=== PATIENT | female | born 1945 | race Caucasian/White ===

== ENCOUNTER 2021-01-12 08:35 | Outpatient (REF) | payer MEDICARE, SELFPAY ==
[2021-01-12 10:03] LABS: MANUAL DIFF FLAG NO
[2021-01-12 10:16] LABS: Basophils Absolute Auto 0.1 X10*3/uL (0.0-0.2); Basophils Percent Auto 1.2 % (0-2); Eosinophils Absolute Auto 0.2 X10*3/uL (0.0-0.4); Eosinophils Percent Auto 3.1 % (0-4); Hematocrit 38.7 % (37-47); Hemoglobin 12.5 g/dl (12.0-16.0); Imm Gran Abs Auto 0.01 X10*3/uL (0.00-0.03); Imm Gran Pct Auto 0.2 % (0.0-0.4); Lymphocytes Absolute Auto 1.6 X10*3/uL (1.2-4.9); Lymphocytes Percent Auto 34.1 % (20-40); Mean Corpuscular HGB Conc 32.3 g/dl (31.0-35.0); Mean Corpuscular Hemoglobin 28.8 pg (27.0-33.0); Mean Corpuscular Volume 89.2 fL (80-98); Mean Platelet Volume 12.7 fL (9.4-12.3); Monocytes Absolute Auto 0.6 X10*3/uL (0.1-1.2); Monocytes Percent Auto 11.4 % (2-11); Neutrophils Absolute Auto 2.4 X10*3/uL (2.0-8.3); Platelet Count 208 X10*3/uL (160-400); Red Blood Count 4.34 X10*6/uL (4.20-5.50); Red Cell Distribution Width 14.6 % (11.0-16.0); White Blood Count 4.8 X10*3/uL (4.8-10.8)
[2021-01-12 10:24] LABS: Estimated Average Glucose 105 mg/dL; Hemoglobin A1c % 5.3 %
[2021-01-12 10:50] LABS: Alanine Aminotransferase 15 U/L (0-31); Albumin Level 4.4 g/dL (3.5-5.0); Alkaline Phosphatase 46 U/L (39-117); Anion Gap 12 (12-20); Aspartate Amino Transferase 18 U/L (5-31); Bilirubin Total 0.6 mg/dL (0.0-1.0); Carbon Dioxide 31 mmol/L (22-29); Chloride 106 mmol/L (96-108); Cholesterol 187 mg/dL; Estimated Glomerular Filt Rate > 60; Glucose Fasting 115 mg/dL (60-99); HDL Cholesterol 64 mg/dL; LDL Cholesterol Calculated 109 mg/dl; Potassium 4.9 mmol/L (3.3-5.1); Sodium 144 mmol/L (135-145); Total Protein 6.8 g/dL (6.5-8.0); Triglycerides 74 mg/dL
[2021-01-12 10:57] LABS: Blood Urea Nitrogen 21 mg/dL (9-16); Calcium 9.7 mg/dL (8.4-10.2)
[2021-01-12 11:01] LABS: Free T4 (Free Thyroxine) 1.15 ng/dL (0.71-1.85); Thyroid Stimulating Hormone 0.72 uIU/mL (0.32-4.0); Vitamin D 25-OH Total 73.6 ng/mL (>30)
== END 2021-01-12 08:36 | disposition home or self-care (01) ==
LOC: HO.LAB 08:35
PROVIDERS: PCP Internal Medicine; Visit Provider Internal Medicine
DX: E03.9 Hypothyroidism, unspecified (principal); E55.9 Vitamin D deficiency, unspecified; E78.00 Pure hypercholesterolemia, unspecified; K21.9 Gastro-esophageal reflux disease without esophagitis; R53.83 Other fatigue
CPT/HCPCS: 36415; 80053; 80061; 82306; 83036; 84439; 84443; 85025

== ENCOUNTER → 2025-02-17 14:05 | Outpatient (REF) | payer MEDICARE, SELFPAY ==
--- NOTE | ~2025-02-17 | XR_ITS ---
CLINICAL HISTORY: enlargement left fourth PIP joint --- Additional Notes or Special Instructions: WO 4 view left hand Comparison: None Findings: Bones intact. No dislocations. Joint space narrowing and periarticular osteophyte formation at the radiocarpal, scaphotrapezial, and 1st carpometacarpal joints is present, indicating osteoarthritis. Periarticular osteophyte formation at the interphalangeal joints of the digits, Most prominently at the proximal interphalangeal joint of the 4th digit. No erosions. No radiopaque foreign body. IMPRESSION: 1. No acute findings 2. Osteoarthritis. This document has been electronically signed by: Sin Snell MD on 02/17/2025 16:53:20
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
--- NOTE | 2025-02-17 15:04 | ECG_ITS ---
Test Reason : RAPID SVT Blood Pressure : */* mmHG Vent. Rate : 64 BPM Atrial Rate : 64 BPM P-R Int : 164 ms QRS Dur : 76 ms QT Int : 418 ms P-R-T Axes : 67 66 76 degrees QTcB Int : 431 ms Normal sinus rhythm Normal ECG No previous ECGs available Referred By: Kylie Seay Electronically Signed By: ETHAN WHITAKER MD
--- OUTSIDE RECORDS SUMMARY | 2025-02-17 15:16 | XMS_ITS | Continuity of Care Document ---
Author Organization [facility] Address [address] [place] [address] Phone Care Team Providers Care Superintendent Maintenance Name Role Phone Yamile Barba OD Unavailable [...] on Encounter [facility], [address] [facility], [place], [place], [id number] , tel:[phone] [address] No Information Mar-2 0- 5 Freda Ovalle. [address], [place], [address], [place]. tel:[phone] [facility], [address] [place], [place], [id number] , [place] tel: [phone] [address] No Information Dec-1 5 Freda Ovalle. [address], [facility], [place]. tel:[phone] E&M New moderate complexity [facility], [address] [place], [place], [id number] , [place] tel: [phone] [address] decreased vision (chief complaint) Keratoconjunctiviti s sicca, not specified as Sjogren's, bilateralTrichiasis without entropion right lower eyelidPresence of intraocular lensDrusen (degenerative) of macula, bilateralPeripheral pterygium, stationary, bilateralPresbyopia Meibomian gland dysfunction right eye, upper and lower eyelidsMeibomian gland dysfunction left eye, upper and lower eyelids Mar-0 5- 5 Freda Ovalle. [address] [place], [facility], [place]. tel:[phone] Referring Provider: Yamile Barba, [address] [place], [facility]. tel:[phone] [facility], [address] [place], [place], [id number] , [place] tel: [phone] [address] No Information Sep- 0- 4 Dax Allison. [address], [id number], [place]. tel:[phone] Family History Family Member Type Diagnosis Age At Onset No Information Payers Payer name Insurance type Covered democrat ID Authoriza tion(s) Medicare Traditional MB [id number] BCBS Comm PPO [id number] Social History Type Description Quantity Date Captured [...] No Information Instructions Date Instruction Additional Infor kinga Impression/Plan Related to Kerat oconjunctivitis sicca, not specified as Sjogren's, bilateral Impression/Plan Related to Meibo umberto gland dysfunction right eye, upper and lower eyelids Impression/Plan Related to Meibo umberto gland dysfunction left eye, upper and lower eyelids Impression/Plan Related to Trich iasis without entropion right lower eyelid Impression/Plan Related to Prese nce of intraocular lens Impression/Plan Related to Drsandra clinton (degenerative) of macula, bilateral Impression/Plan Related to Perip heral pterygium, stationary, bilateral Impression/Plan Related to Presb yopia Assessments Type Assessment Date No Information Patient Care Teams Name Effective Dates (start - stop) Status Members No Information
== END ==
LOC: HO.CARD 14:05
PROVIDERS: PCP Internal Medicine; Visit Provider Internal Medicine
DX: R00.2 Palpitations (principal); M19.042 Primary osteoarthritis, left hand
CPT/HCPCS: 73130; 93005; 93306

== ENCOUNTER → 2025-02-17 14:25 | Outpatient (BNV) | payer MEDICARE, SELFPAY | PROVIDERS: PCP Internal Medicine; Visit Provider Radiology Diagnostic Radiology | DX: M19.041 Primary osteoarthritis, right hand (principal) | CPT/HCPCS: 73130 ==

== ENCOUNTER → 2025-02-17 14:42 | Outpatient (BNV) | payer MEDICARE, SELFPAY | PROVIDERS: PCP Internal Medicine; Visit Provider Internal Medicine Cardiovascular Disease | DX: I50.30 Unspecified diastolic (congestive) heart failure (principal); I35.1 Nonrheumatic aortic (valve) insufficiency; I34.0 Nonrheumatic mitral (valve) insufficiency; I36.1 Nonrheumatic tricuspid (valve) insufficiency | CPT/HCPCS: 93306 ==

== ENCOUNTER 2025-04-30 09:04 | Outpatient (AMB) | payer MEDICARE, SELFPAY ==
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
--- NOTE | 2025-04-30 09:05 | A.OFFVIS_ITS ---
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 POTS Intake Note: New patient dx hypotension c/o passing out yesterday morning just doing dishes has hx of SVT Sack Department Supervisor Required: No Pathology Tech: Pathology Tech Present Accompanied by: Spouse Allergies No Known Allergies Allergy (Verified 04/30/25 09:16) Medication List - Last Reconciled 04/30/25 by Neville Guevara MD calcium carbonate (Calcium 600) 600 mg PO DAILY coenzyme Q10 (Ultra CoQ10) 75 mg PO DAILY cyclosporine 0.05% (Restasis) 1 drp ophthalmic (eye) BID cyclosporine 0.1% (Vevye) 1 drp ophthalmic (eye) BID garlic 1,000 mg PO DAILY ibuprofen (Advil) 200 mg PO Q6H PRN levothyroxine 75 mcg PO DAILY magnesium gluconate (Mag-G) 54 mg PO DAILY metoprolol succinate ER 25 mg PO ONCE PRN multivitamin 1 tab PO DAILY omega-3 acid ethyl esters 1 cap PO DAILY pravastatin 80 mg PO BEDTIME turmeric mg PO vitamins A,C,P-dvki-uwpyda 4,296 mcg-226 mg-90 mg (PreserVision AREDS) 1 cap PO BID HPI Comments Details: Thank you for referring Keturah in cardiology consultation today for symptoms of lightheadedness and shortness of breath. She is 80-year-old female who says she has been extremely functional and was able to keep up with her significant other exercising few months ago. However since January she has started noticing that she gets short of breath when she is exerting herself. She has no associated symptoms of chest discomfort. She denies any orthopnea, PND. Does have a family history of father having a sudden cardiac that with PR at age 70. She has never had any other prior vascular history. 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 She says she gets these symptoms and tries her vagal maneuvers but the best thing that works for his PRN metoprolol therapy which then subsides or symptoms with intent to 20 minutes. She has had no significant progression in his symptoms of SVT. She understands management well. She also has however notice symptoms of lightheadedness. One episode was yesterday while she was doing stuff around the kitchen and standing at the sink washing dishes she got severely lightheaded and felt like she was going to faint. She then sat down. She says she gets these symptoms when she exerts herself and is mostly upright. She does not have any symptoms of immediate orthostatic lightheadedness. She is very bothered by her symptoms. She has been trying to liberalize her salt intake although she is not sure as to how much. She says she drinks a lot of fluids as well. She is very worried about these 2 symptoms and comes for further evaluation. Review of Systems Const Denies chills, Denies daytime sleepiness, Denies fatigue, Denies fever(s), Denies frequent falls, Denies poor appetite, Denies snoring, Denies stops breathing during sleep, Denies weakness, Denies weight gain and Denies weight loss Eyes Denies loss of vision ENT Denies dizziness and Denies hearing loss Card Denies chest pain, Denies claudication, Denies leg edema, Denies lightheadedness, Denies palpitations, Denies dyspnea, Denies dyspnea on exertion and Denies orthopnea Resp Denies cough, Denies excessive phlegm production, Denies dyspnea, Denies dyspnea on exertion, Denies snoring and Denies wheezing GI Denies abdominal pain, Denies hematochezia, Denies change in bowel habits, Denies nausea and Denies vomiting Denies urinary frequency and Denies dysuria Musc Denies arthralgias, Denies muscle weakness, Denies numbness and Denies other (frequent falls) Skin/Breast Denies nail changes and Denies rash Neuro Denies Abnormal speech present, Denies dizziness, Denies frequent falls, Denies loss of vision, Denies memory loss, Denies numbness and Denies weakness Psych Denies depression and Denies memory loss Endo Denies fatigue and Denies palpitations Memo/Lymph Reports easy bruising and Reports other (anemia) Aller/Immun Denies wheezing Physical Exam Vital Signs: Last Vital Signs Pulse 79 07/24/25 09:25 BP 108/63 07/24/25 09:25 BMI result Body Mass Index 27.6 Const General: cooperative, comfortable, no acute distress, well developed, alert, awake, Physically active and well groomed Nutritional Appearance: well nourished and overweight Orientation/consciousness: patient oriented x3 Limitations: no limitations HEENT Head: Yes normocephalic and Yes atraumatic Neck Neck: Yes trachea midline, Yes supple and Yes no JVD Resp Effort & Inspection: normal respiratory effort Auscultation: clear to auscultation bilaterally Cardio Jugular venous distension: no JVD Palpation: normal PMI Rate: regular rate Rhythm: regular rhythm Heart sounds: S1 normal heart sound present, S2 normal heart sound present, no click, no gallops and no murmurs GI Auscultation: normal bowel sounds Skin General skin exam: no rashes or lesions noted Neuro General: patient oriented x3 and no focal motor deficits Speech: No Abnormal speech present Extrem General: Yes no clubbing, cyanosis or edema Psych Appearance: grossly normal Affect: Anxious affect present Assessment & Plan Assessment & Plan (1) Short of breath on exertion: Code(s): R06.02 - Shortness of breath Category: Medical Plan: Recent onset symptoms exertional shortness of breath which is life-limiting. She has no signs or symptoms of heart failure. She did have an echocardiogram recently which shows normal LV ejection fraction with grade 2 diastolic dysfunction with moderately dilated left atrium with mildly elevated right ventricular systolic pressure with mild aortic and mitral regurgitation. This could easily explain his symptoms. Although she does not have any signs of heart failure. Mechanism of shortness of breath with diastolic dysfunction was discussed. Less likely that this represent deconditioning. However given her age and risk factors myocardial ischemia is also highly likely. Suggest exercise myocardial perfusion imaging to further assess for the same. Further treatment based on the findings. (2) Lightheadedness: Code(s): R42 - Dizziness and giddiness Category: Medical Plan: She had also bothered by symptoms of lightheadedness which appear to me to be related to delayed orthostatic hypotension. She did not having any immediate orthostatic drop in blood pressure tachycardia with standing up so postural orthostatic tachycardia syndrome is less likely. More likely senile autonomic dysfunction. Would suggest a tilt-table test to further assess for the same. Also suggest a Holter monitor to rule out any significant Gordon arrhythmias. (3) Paroxysmal SVT (supraventricular tachycardia): Code(s): I47.10 - Supraventricular tachycardia, unspecified Category: Medical Plan: Longstanding history of SVTs which is currently controlled with PRN metoprolol dose and vagal maneuvers. We discussed about treatment options including ablation. She is not clearly keen right now to pursue that option. She wants to continue with metoprolol therapy as need be. We discussed mechanism of SVT and to avoid stimulants as well as stress mitigation strategies. Will follow up in the clinic after above-mentioned test. Thank you for allowing me to partake in her care Orders: Orders CA stress test 04/30/25 R06.02 - Shortness of breath ECG Tilt Table Test 04/30/25 R42 - Dizziness and giddiness ECG 7 day holter monitor 04/30/25 R42 - Dizziness and giddiness NM cardiolite stress test 2 Weeks R06.02 - Shortness of breath, R07.9 - Chest pain, unspecified Coding Level of Care Code New Pt Level 4 (03105) Complex EM visit Add On G2211 Diagnoses Short of breath on exertion R06.02 Lightheadedness R42 Paroxysmal SVT (supraventricular tachycardia) I47.10
[2025-04-30 09:07] VITALS: BP 105/56; PULSE 71; BMI 27.6
[2025-04-30 09:25] VITALS: BP 108/63; BP 111/56; PULSE 67; PULSE 79
--- OUTSIDE RECORDS SUMMARY | 2025-04-30 09:31 | XMS_ITS | Clinical Summary ---
Author Organization [facility] Address [address] [place] [phone] Care Team Providers Care Corn Crop Supervisor Name Role Phone Kylie Walker MD Primary Care Provider Social History Tobacco Use Types Packs/Day Years Used Date Smoking Tobacco: Never Assessed Comments Unknown Sex and Gender Information Value Date Recorded Sex Assigned at Not on file Legal Sex Female 2:45 PM EST Gender Identity Not on file Sexual Orientation Not on file Plan of Treatment Health Maintenance Due Date Last Done Comments DTaP,Tdap,and Td Vaccines (1 - Tdap) 1964 RSV Immunization Adult Patients (1 - 1-dose 75+ series) 2018 Zoster Vaccines (2 of 2) 11/02/2020 09/07/2020 Falls Risk Assessment 09/06/2022 Osteoporosis Screening (Bone Density Screening) 09/06/2022 Social Influencers of Health Screening 09/06/2022 COVID-19 Vaccine ( - season) 2024 Depression Screening 10/08/2024 Influenza Vaccine (#1) 2025 0, 07/11/2018, 06/19/2017, Additional history exists Pneumococcal Vaccine: 50+ Years Completed 07/13/2015, 07/07/2013 HIB Vaccines Aged Out No longer eligi ble based on patient's age to complete this topic HPV Vaccines Aged Out No longer eligi ble based on patient's age to complete this topic Hepatitis A Vaccines Aged Out No long er eligible based on patient's age to complete this topic Hepatitis B Vaccines Aged Out No long er eligible based on patient's age to complete this topic IPV Vaccines Aged Out No longer eligi ble based on patient's age to complete this topic MMR Vaccines Aged Out No longer eligi ble based on patient's age to complete this topic Meningococcal ACWY Vaccine Aged Out N o longer eligible based on patient's age to complete this topic Meningococcal B Vaccine Aged Out No l onger eligible based on patient's age to complete this topic RSV Immunization Patients Under 20 months Aged Out No longer eligible based on patient's age to complete this topic Varicella Vaccines Aged Out No longer eligible based on patient's age to complete this topic Care Teams Corn Crop Supervisor Relationship Specialty Start Date End Date Kylie Walker MD [address] [phone] PCP - General Internal Medicine 04/21/25
== END 2025-04-30 10:02 | disposition home or self-care (01) ==
LOC: HO.HCS 09:04
PROVIDERS: PCP Internal Medicine; Visit Provider Internal Medicine Cardiovascular Disease
DX: R06.02 Shortness of breath (principal); R42 Dizziness and giddiness; I47.10 Supraventricular tachycardia, unspecified
CPT/HCPCS: 99214; G2211

== ENCOUNTER → 2025-04-30 09:04 | Outpatient (BNVA) | payer MEDICARE, SELFPAY | PROVIDERS: PCP Internal Medicine; Visit Provider Internal Medicine Cardiovascular Disease | DX: R06.02 Shortness of breath (principal); R42 Dizziness and giddiness; I47.10 Supraventricular tachycardia, unspecified | CPT/HCPCS: 99212 ==

== ENCOUNTER → 2025-05-08 08:53 | Outpatient (REF) | payer MEDICARE, SELFPAY ==
--- OUTSIDE RECORDS SUMMARY | 2024-12-25 05:47 | XMS_ITS | Continuity of Care Document ---
Author Organization [facility] Address [address] [place] [address] Phone Care Team Providers Care Synchronizer Name Role Phone Yamile Barba OD Unavailable [...] on Encounter [facility], [address] [facility], [place], [place], [id number] , tel:[phone] [address] No Information Mar-2 0- 5 Freda Ovalle. [address], [place], [address], [place]. tel:[phone] [facility], [address] [place], [place], [id number] , [place] tel: [phone] [address] No Information Dec-1 5 Freda Ovalle. [address] [place], [facility], [place]. tel:[phone] E&M New moderate complexity [facility], [address] [place], [place], [id number] , [place] tel: [phone] [address] decreased vision (chief complaint) Keratoconjunctiviti s sicca, not specified as Sjogren's, bilateralTrichiasis without entropion right lower eyelidPresence of intraocular lensDrusen (degenerative) of macula, bilateralPeripheral pterygium, stationary, bilateralPresbyopia Meibomian gland dysfunction right eye, upper and lower eyelidsMeibomian gland dysfunction left eye, upper and lower eyelids Mar-0 5- 5 Freda Ovalle. [address] [place], [facility], [place]. tel:[phone] Referring Provider: Yamile Barba, [address] [place], [facility]. tel:[phone] [facility], [address] [place], [place], [id number] , [place] tel: [phone] [address] No Information Sep- 0- 4 Dax Allison. [address], [id number], [place]. tel:[phone] Family History Family Member Type Diagnosis Age At Onset No Information Payers Payer name Insurance type Covered green party ID Authoriza tion(s) Medicare Traditional MB [id number] BCBS Comm PPO [id number] Social History Type Description Quantity Date Captured [...]
--- NOTE | ~2025-05-08 | NM_ITS ---
EXERCISE MYOCARDIAL PERFUSION STUDY INDICATION: Coronary artery disease TECHNIQUE: The patient was brought in for an exercise perfusion study on 05/08/2025. Patient performed exercise as per Magdy protocol and was injected 25 mCi of sestamibi once target heart rate was achieved. Images were obtained using the SPECT gamma camera interlaced with the gating device. Images were obtained in supine position. Resting perfusion study was performed on 05/11/2025. Patient was administered 25 mCi of sestamibi intravenously at rest. Images were then obtained in supine position. Total DLP 56 mGy-cm. Images were processed with the software and compared side to side in short axis, horizontal long axis and vertical long axis views. FINDINGS: Raw aquisition reviewed. The stress perfusion study showed mildly diminished tracer uptake along the inferior wall. There is improvement with CT attenuation correction suggestive of diaphragmatic attenuation artifact. The gated study shows normal LV systolic function with calculated LVEF of > 70%. LV cavity is normal in size. The gated study shows normal wall thickening and contraction of segments. Resting study shows diminished tracer uptake along the inferior wall. There is improvement with CT attenuation correction suggestive of diaphragmatic attenuation artifact. Gating at rest reveals normal wall motion with ejection fraction at > 70%. The findings are consistent with fixed inferior perfusion defect. No clear reversible defects. NM/NM cardiolite stress test IMPRESSION: 1. Myocardial perfusion imaging study shows probably normal myocardial perfusion. 2. Gated LVEF is > 70% during stress and rest. 3. Transient ischemic dilatation not present. EKG component of the test reported separately. Electronically signed by: Rudy Burnette MD 05/12/2025 10:36 AM EDT
--- NOTE | 2025-05-08 08:55 | HM_ITS ---
Conclusion: 1. Patient was monitored for total period of 8 days 2. Baseline was normal sinus rhythm with average heart of 67 beats per minute 3. Occasional PVCs noted with total burden of 0.52% with 7 runs of SVT, longest lasting 30 seconds at 136 beats per minute consistent with atrial tachycardia 4. Patient marked the counter 1 time with symptoms of blurry vision correlating with sinus rhythm MTDD
--- NOTE | 2025-05-08 08:55 | CA_ITS ---
Acquisition Time: 2025-05-08 09:13:34 Total Exercise Time: 00:05:00 Test Indications: Abnormal ECG,Syncope,Dyspnea Medications: SEE H&P Protocol: LIZBETH Max HR: 130 BPM 94% of Pred: 138 BPM Max BP: 138/58 mmHG Max Work Load: 4.6 METS Exercise stress test with exercise 5 mins of Lizbeth Protocol held at Satge 1, achieving 93% MPHR, with reports of feeeling very fatigued, lightheded and SOB, with isolated PACs and PVCs, with normotensive response to exercise. With ST depression inferiorly and in leads V4- V6 and ST elevation in aVR, meetingcriteria for ischemia. In recovery, pt's symsptoms improving and feeeling back to baseline. ST sgement improved to baseline. Test reviewed with Dr. Geuvara. Will arrange for cardiac cath. Referred By: Neville Guevara Electronically Signed By: Darrion Cruz
--- OUTSIDE RECORDS SUMMARY | 2025-05-08 09:06 | XMS_ITS | Clinical Summary ---
Author Organization [facility] Address [address] [place] [phone] Care Team Providers Care Airport Operations Coordinator Name Role Phone Kylie Walker MD Primary Care Provider Social History Tobacco Use Types Packs/Day Years Used Date Smoking Tobacco: Never Assessed Comments Unknown Sex and Gender Information Value Date Recorded Sex Assigned at Not on file Legal Sex Female 2:45 PM EST Gender Identity Not on file Sexual Orientation Not on file Plan of Treatment Upcoming Encounters Date Type Department Care Team (Late st Contact Info) Description 07/28/2025 2:30 PM EDT Appointment [facility] [address] [place] [phone] Health Maintenance Due Date Last Done Comments DTaP,Tdap,and Td Vaccines (1 - Tdap) 1964 RSV Immunization Adult Patients (1 - 1-dose 75+ series) 2018 Zoster Vaccines (2 of 2) 11/02/2020 09/07/2020 Falls Risk Assessment 09/06/2022 Medicare Annual Wellness Visit 09/06/2022 Osteoporosis Screening (Bone Density Screening) 09/06/2022 [...] on patient's age to complete this topic Insurance MEDICARE Care Teams Airport Operations Coordinator Relationship Specialty Start Date End Date Kylie Walker MD [address] [place] [phone] PCP - General Internal Medicine 04/21/25
== END ==
LOC: HO.CARD 08:53
PROVIDERS: PCP Internal Medicine; Visit Provider Internal Medicine Cardiovascular Disease
DX: R07.9 Chest pain, unspecified (principal); R06.02 Shortness of breath; R42 Dizziness and giddiness; R94.31 Abnormal electrocardiogram [ECG] [EKG]; R55 Syncope and collapse
CPT/HCPCS: 78452; 93017; 93242; A9500

== ENCOUNTER → 2025-05-08 08:55 | Outpatient (BNV) | payer MEDICARE, SELFPAY | PROVIDERS: PCP Internal Medicine | DX: I25.10 Atherosclerotic heart disease of native coronary artery without angina pectoris (principal) | CPT/HCPCS: 78452; 93016; 93018 ==

== ENCOUNTER 2025-05-11 10:14 | Outpatient (REF) | payer MEDICARE, SELFPAY ==
--- OUTSIDE RECORDS SUMMARY | 2025-05-11 10:51 | XMS_ITS | Clinical Summary ---
Author Organization [facility] Address [id number] [place] [phone] Care Team Providers Care Hvac Tech Name Role Phone Kylie Walker MD Primary [...] Info) Description 07/28/2025 2:30 PM EDT Appointment [facility] [address] [place] [phone] Health Maintenance Due Date Last Done Comments [...] complete this topic Insurance MEDICARE Care Teams Hvac Tech Relationship Specialty Start Date End Date Kylie Walker MD [address] [place] [phone] PCP - General Internal Medicine 04/21/25
[2025-05-11 13:57] LABS: INTERNATIONAL NORM RATIO 1.0 (0.9-1.1); Prothrombin Time 11.6 SEC (10.9-12.4)
[2025-05-11 13:58] LABS: Hematocrit 27.5 % (37.0-47.0); Hemoglobin 8.2 g/dl (12.0-16.0); Mean Corpuscular HGB Conc 29.8 g/dl (31.0-35.0); Mean Corpuscular Hemoglobin 19.9 pg (27.0-33.0); Mean Corpuscular Volume 66.6 fL (80.0-98.0); NRBC Abs Auto 0.000 X10*3/uL (0.0-0.012); NRBC Pct Auto 0.0 /100WBC (0.0-0.2); Platelet Count 245 X10*3/uL (160-400); Red Blood Count 4.13 X10*6/uL (4.20-5.50); White Blood Count 7.7 X10*3/uL (4.8-10.8)
[2025-05-11 14:35] LABS: Anion Gap 12 (12-20); Blood Urea Nitrogen 17 mg/dL (9-16); Calcium 9.7 mg/dL (8.4-10.2); Carbon Dioxide 26 mmol/L (22-29); Chloride 108 mmol/L (96-108); Estimated Glomerular Filt Rate > 60; Potassium 4.5 mmol/L (3.3-5.1); Sodium 141 mmol/L (135-145)
== END 2025-05-11 10:15 | disposition home or self-care (01) ==
LOC: HO.LAB 10:14
PROVIDERS: PCP Internal Medicine
DX: R06.02 Shortness of breath (principal); R94.39 Abnormal result of other cardiovascular function study
CPT/HCPCS: 36415; 80048; 85027; 85610

== ENCOUNTER → 2025-05-13 11:00 | Outpatient (BNV) | payer MEDICARE, SELFPAY | PROVIDERS: PCP Internal Medicine; Referring Provider Internal Medicine Cardiovascular Disease; Visit Provider Nurse Practitioner Family | DX: D64.9 Anemia, unspecified (principal) | CPT/HCPCS: 99204 ==

== ENCOUNTER 2025-05-27 14:11 | Emergency (ER) | payer MEDICARE, SELFPAY ==
[2025-05-27 14:35] VITALS: BP 130/62; BP 150/77; PULSE 87; PULSE 90; RESP 16; TEMP 36.8; O2SAT 97; O2SAT 99; BMI 25.5
--- NOTE | 2025-05-27 14:43 | ED.GENADULT ---
HPI - General Adult General Chief complaint: General Medical Stated complaint: mamta leg/thigh pain, iron infusion today Time Seen by Provider: 05/27/25 14:43 Source: patient, family (patient's daughter) and EMS Mode of arrival: EMS Limitations: no limitations History of Present Illness ED Provider: Carolina Martin PA-C HPI narrative: Patient is an 80 year old assigned female at with a history of anemia - obtaining iron infusions, b12 deficiency, and paroxysmal SVT presenting to the emergency department today with bilateral thigh pain that has now resolved. Patient states that she had her first iron infusion today and right after she was feeling fine but then she developed significant aching to her bilateral thighs. Patient states that the pain has now resolved. Patient denies any dizziness, lightheadedness, abdominal pain, nausea, vomiting, fever, chills, blurry vision, double vision, loss of vision, chest pain, difficulty breathing, shortness of breath, syncope or a near syncopal episode, recent trauma or falls, bowel incontinence, bladder incontinence, or any other complaints at this time. Relieving factors: none Exacerbating factors: none Related Data Home Medications ?Medication ?Instructions ?Recorded ?Confirmed calcium carbonate (Calcium 600) 600 mg PO DAILY 04/30/25 05/13/25 coenzyme Q10 75 mg capsule (Ultra 75 mg PO DAILY 04/30/25 05/13/25 CoQ10) cyclosporine 0.05 % eye drops in a 1 drp ophthalmic (eye) BID 04/30/25 05/13/25 dropperette (Restasis) cyclosporine 0.1 % eye drops 1 drp ophthalmic (eye) BID 04/30/25 05/13/25 (Vevye) garlic 1,000 mg capsule 1,000 mg PO DAILY 04/30/25 05/13/25 ibuprofen 200 mg tablet (Advil) 200 mg PO Q6H PRN yes 04/30/25 05/13/25 levothyroxine 75 mcg tablet 75 mcg PO DAILY 04/30/25 05/13/25 magnesium gluconate 27 mg 54 mg PO DAILY 04/30/25 05/13/25 magnesium (500 mg) tablet (Mag-G) multivitamin 1 tab PO DAILY 04/30/25 05/13/25 omega-3 acid ethyl esters 1 gram 1 cap PO DAILY 04/30/25 05/13/25 capsule pravastatin 80 mg tablet 80 mg PO BEDTIME 04/30/25 05/13/25 turmeric 400 mg capsule 400 mg PO DAILY 04/30/25 05/13/25 vitamins A,C,W-eplc-qmbkha 4,296 1 cap PO BID 04/30/25 05/13/25 mcg-226 mg-90 mg capsule (PreserVision AREDS) Previous Rx's ?Medication ?Instructions ?Recorded cyanocobalamin (vitamin B-12) 1,000 mcg IM USEASDIRECTD #4,000 mL 05/13/25 1,000 mcg/mL injection solution folic acid 1 mg tablet 1 mg PO DAILY #90 tabs 05/13/25 metoprolol tartrate 25 mg tablet 25 mg PO DAILY PRN Palpitations 05/15/25 #30 tabs syringe with needle 3 mL 22 gauge #100 ea 05/19/25 x 3/4 (Syringe 3cc/22Gx3/4 ) syringe with needle 3 mL 25 x 1 #4 ea 05/20/25 1/2 Allergies Allergy/AdvReac Type Severity Reaction Status Date / Time No Known Allergies Allergy Verified 05/27/25 14:40 Review of Systems Constitutional: Constitutional: Reports no additional constitutional complaints, Denies chills, Denies fever(s) and Denies night sweats Eyes: Eyes: Reports no additional eye complaints, Denies blurry vision, Denies change in vision, Denies diplopia, Denies eye discharge, Denies loss of vision and Denies eye pain ENT: Denies dizziness Cardiovascular: Cardiovascular: Reports no additional cardiovascular complaints, Denies chest pain, Denies lightheadedness, Denies Loss of Consciousness and Denies dyspnea Respiratory: Respiratory: Reports no additional respiratory complaints and Denies dyspnea Gastrointestinal: Gastrointestinal: Reports no additional gastrointestinal complaints, Denies abdominal pain, Denies melena, Denies hematochezia, Denies change in bowel habits and Denies change in stool character Genitourinary: Genitourinary: Reports as per HPI Musculoskeletal: Musculoskeletal: Reports no additional musculoskeletal complaints, Denies numbness and Denies tingling Comments: bilateral thigh pain Neurologic: Denies dizziness, Denies loss of vision, Denies numbness and Denies tingling Psychiatric: Psychiatric: Reports no additional psychiatric complaints Endocrine: Endocrine: Reports no additional endocrine complaints Hematologic/Lymphatic: Hematologic/Lymphatic: Reports no additional hematologic/lymphatic complaints Allergic/Immunologic: Allergic/Immunologic: Reports no additional allergic/immunologic complaints [facility] Past Medical History Attestation statement: The following information was validated with the patient. (all information validated with the patient's daughter) Source: old records reviewed, obtained from family (patient's daughter provided additional history and confirmed the history provided by the patient) and nursing notes reviewed Surgical History Hx of bilateral mastectomy Social History Social History Household Members: Spouse Housing: House Are you a primary home health care provider to a significant other at home: No Do you presently have visiting nurse or other home services: No Patient Tobacco Use Status: Never used Tobacco Smoked in Last 30 Days: No Use of substances other than those prescribed or required for medical reasons: No Advance Directives: No Advance Directives Information Provided: Yes service: No Current occupational status: retired Physical Exam ED Vital Signs: Vital Signs - 24 hr 05/27/25 14:35 05/27/25 15:14 05/27/25 15:25 Temperature 98.3 F 98.3 F 98.3 F Pulse Rate 87 87 87 Respiratory Rate 16 16 16 Blood Pressure 130/62 130/62 130/62 Pulse Oximetry 97 97 97 Oxygen Delivery Method Room Air Room Air Room Air BMI result Body Mass Index 25.5 Const General: cooperative, no acute distress, alert and awake Nutritional Appearance: well nourished Orientation/consciousness: patient oriented x3 HENMT Head: Yes normal to inspection and Yes atraumatic Ears: hearing grossly normal bilaterally and external ears normal General nose exam: Normal external nose present, no nasal discharge noted and no epistaxis Face and sinus: Yes normal facial exam, No abrasion and No laceration Mouth: Normal oral and palatal mucosa present, no drooling and no muffled voice Eyes General: appearance normal, both eyes and all related structures Periorbital: periorbital findings normal Eyelids: Yes eyelids normal Conjunctivae: conjunctivae normal Pupils: Equal, round and reactive pupils present EOM: EOMs intact bilaterally Neck Neck: Yes normal visual inspection and Yes full ROM Resp Effort & Inspection: normal respiratory effort and able to speak in complete sentences Neuro General: patient oriented x3, moves all extremities and CN's II-XI intact bilaterally Cranial nerves: Yes Equal, round and reactive pupils present Cognition (Neuro): normal cognition Extrem General: Yes normal to inspection, Yes full ROM and Yes capillary refill normal Psych Appearance: grossly normal Mental Status: mental status grossly normal Affect: normal affect Attitude: cooperative Thought process: Normal thought process present Thought content: Normal thought content present Insight: Good insight present (Psych) Medical Decision Making Medical Decision Making MDM Narrative: Patient is an 80 year old assigned female at with a history of anemia - obtaining iron infusions, b12 deficiency, and paroxysmal SVT presenting to the emergency department today with bilateral thigh pain that has now resolved. Patient's physical exam was unremarkable. Patient's clinical presentation is most consistent with a routine side effect from an iron infusion. I explained my physical exam findings to the patient and the patient's daughter. I answered all questions asked by the patient and the patient's daughter. I stressed the importance of the patient taking her medication as directed (either prescribed or as the over the counter packaging recommends). I stressed the importance of the patient following up with her primary care provider. I stressed the importance of the patient returning to the emergency department immediately if her symptoms were to worsen or if she were to develop any dizziness, shortness of breath, difficulty breathing, chest pain, blurry vision, loss of vision, nausea, vomiting, abdominal pain, fever, chills, back pain, or any other complaints. Patient and the patient's daughter verbalized agreement and understanding with this treatment plan and discharge. Differential Diagnosis Differential Diagnoses: The differential diagnosis associated with the presentation includes Medication reaction Side effect of transfusion Bilateral upper leg pain Admission/Observation Consideration of admission/observation: Escalation of care including admission/observation considered Patient would have been admitted to the hospital had her clinical presentation warranted hospital admission. Independent Historian Clinical information obtained from an independent historian. History obtained from or confirmed by: EMS (EMS provided additional history and confirmed the history provided by the patient and her daughter) and Other (Patient's daughter provided additional history and confirmed the history provided by the patient. ) Tests considered The following testing was considered but not selected: I considered obtaining a CBC and CMP however, the patient's clinical presentation does not currently warrant this. Discharge Plan Discharge Clinical Impression: Medication side effect Patient Disposition: Home, Self-Care Instructions: Adverse Drug Reaction (ED) Additional Instructions: I believe your symptoms are a known side effect of iron infusions. Please make sure you hydrate plenty before and after your infusions. IF you are prescribed home medications and/or you are taking over the counter medications at home - it is very important you continue to do so as prescribed / directed unless told otherwise. Follow up with your primary care provider. Return to the emergency department immediately if your symptoms worsen or if you develop any numbness, tingling, dizziness, shortness of breath, difficulty breathing, chest pain, blurry vision, loss of vision, nausea, vomiting, abdominal pain, fever, chills, back pain, or any other complaints. Please see the information below about our Patient Portal. If you are not yet enrolled in the [facility] Patient Portal, you will receive an enrollment email invitation following your visit to any [facility] care setting. You may also self-enroll in the Patient Portal by visiting our website: [email or web address] The following information is required to access the Patient Portal: - Your [facility] Medical Record Number - Your personal home email address (must match what is in your electronic medical record, Registration staff can assist with this) - Name - Date of Capabilities of the Patient Portal: - Message some providers - View upcoming appointments - Access your health summary, medical history, and visit history - View current conditions and allergies - View procedure and lab results - View your medications, including guidelines, side effects, and precautions - Complete pre-appointment questionnaires requested by your provider - Ready summary reports of your office visits and procedures To access the Patient Portal Mobile Trisha, follow these directions: - Search [employer] in the Trisha Store or [employer] Store - Download the Trisha - Search for [facility] - Enter your login/password Prescriptions: No Action metoprolol tartrate 25 mg tablet 25 mg PO DAILY PRN (Reason: Palpitations) Qty: 30 0RF cyanocobalamin (vitamin B-12) 1,000 mcg/mL Solution 1,000 mcg IM USEASDIRECTD Qty: 4000 0RF Rx Instructions: 1000 mcg IM injection weekly x3 and then monthly folic acid 1 mg Tablet 1 mg PO DAILY Qty: 90 1RF (DME) Syringe 3cc/22Gx3/4 3 mL 22 gauge x 3/4 Syringe Qty: 100 0RF Rx Instructions: As Directed (DME) syringe with needle 3 mL 25 x 1 1/2 Syringe Qty: 4 1RF Rx Instructions: As Directed multivitamin Tablet 1 tab PO DAILY levothyroxine 75 mcg tablet 75 mcg PO DAILY garlic 1,000 mg capsule 1,000 mg PO DAILY calcium carbonate [Calcium 600] 600 mg calcium (1,500 mg) tablet 600 mg PO DAILY pravastatin 80 mg tablet 80 mg PO BEDTIME ibuprofen [Advil] 200 mg tablet 200 mg PO Q6H PRN (Reason: yes) cyclosporine [Restasis] 0.05 % dropperette 1 drp ophthalmic (eye) BID Ultra CoQ10 75 mg capsule 75 mg PO DAILY omega-3 acid ethyl esters 1 gram capsule 1 cap PO DAILY magnesium gluconate [Mag-G] 27 mg magnesium (500 mg) tablet 54 mg PO DAILY PreserVision AREDS 4,296 mcg-226 mg-90 mg capsule 1 cap PO BID turmeric 400 mg capsule 400 mg PO DAILY Vevye 0.1 % drops 1 drp ophthalmic (eye) BID Referrals: Kylie Seay MD [Primary Care Provider, Medical] Interventions: ED Discharge Assessment Last Done: 05/27/25 15:14 ED Discharge Assessment Last Done: 05/27/25 15:25 Discharge Date/Time: 05/27/25 15:26 Print Language: Ukrainian
[2025-05-27 15:14] VITALS: BP 130/62; PULSE 87; RESP 16; TEMP 36.8; O2SAT 97
[2025-05-27 15:25] VITALS: BP 130/62; PULSE 87; RESP 16; TEMP 36.8; O2SAT 97
--- OUTSIDE RECORDS SUMMARY | 2025-05-27 15:45 | XMS_ITS | Clinical Summary ---
Author Organization [facility] Address [id number] [place] [phone] Care Team Providers Care Pre Press Proofer Name Role Phone Kylie Walker MD Primary Care Provider [phone] Social History Tobacco Use Types Packs/Day Years [...] Info) Description 07/28/2025 2:[address] [facility] [address] [place] [phone] Health Maintenance Due Date Last Done Comments [...] complete this topic Insurance MEDICARE Care Teams Pre Press Proofer Relationship Specialty Start Date End Date Kylie Walker MD [address] [place] [phone] PCP - General Internal Medicine 04/21/25
== END 2025-05-27 15:26 | disposition home or self-care (01) ==
PROVIDERS: Emergency Provider Emergency Medicine; PCP Internal Medicine
DX: M79.652 Pain in left thigh (principal); M79.651 Pain in right thigh; M79.662 Pain in left lower leg; M79.661 Pain in right lower leg; E53.8 Deficiency of other specified B group vitamins; D64.9 Anemia, unspecified; T45.4X5A Adverse effect of iron and its compounds, initial encounter; Z79.899 Other long term (current) drug therapy
CPT/HCPCS: 99283

== ENCOUNTER 2025-06-19 06:07 | Outpatient (REF) | payer MEDICARE, SELFPAY ==
--- OUTSIDE RECORDS SUMMARY | 2024-12-25 05:47 | XMS_ITS | Continuity of Care Document ---
Author Organization [facility] Address [address] [place] [address] Phone Care Team Providers Care Back Shoe Operator Name Role Phone Yamile Barba OD Unavailable [...] on Encounter [facility], [address] [facility], [place], [place], [id number] , tel:[phone] [address] No Information Mar-2 0- 5 Freda Ovalle. [address], [place], [address], [place]. tel:[phone] [facility], [address] [place], [place], [id number] , [place] tel: [phone] [address] No Information Dec-1 5 Freda Ovalle. [address], [facility], [place]. tel:[phone] E&M New moderate complexity [facility], [address] [place], [place], [id number] , [place] tel: [phone] [address] decreased vision (chief complaint) Keratoconjunctiviti s sicca, not specified as Sjogren's, bilateralTrichiasis without entropion right lower eyelidPresence of intraocular lensDrusen (degenerative) of macula, bilateralPeripheral pterygium, stationary, bilateralPresbyopia Meibomian gland dysfunction right eye, upper and lower eyelidsMeibomian gland dysfunction left eye, upper and lower eyelids Mar-0 5- 5 Freda Ovalle. [address] [place], [facility], [place]. tel:[phone] Referring Provider: Yaimle Barba, [address], [facility]. tel:[phone] [facility], [address] [place], [place], [id number] , [place] tel: [phone] [address] No Information Sep- 0- 4 Dax Allison. [address], [address], [place]. tel:[phone] Family History Family Member Type Diagnosis Age At Onset No Information Payers Payer name Insurance type Covered green party ID Authoriza tion(s) Medicare Traditional MB [id number] BCBS Comm PPO [id number] Social History Type Description Quantity Date Captured [...]
--- OUTSIDE RECORDS SUMMARY | 2025-06-19 06:11 | XMS_ITS | Clinical Summary ---
Author Organization [facility] Address [address] [place] [phone] Care Team Providers Care Evening Anchor Name Role Phone Kylie Walker MD Primary [...] Info) Description 07/28/2025 2:30 PM EDT Appointment [facility] [address] [place] [phone] Health Maintenance Due Date Last Done Comments [...] complete this topic Insurance MEDICARE Care Teams Evening Anchor Relationship Specialty Start Date End Date Kylie Walker MD [address] [place] [phone] PCP - General Internal Medicine 04/21/25
[2025-06-19 11:39] LABS: Anion Gap 10 (12-20); Blood Urea Nitrogen 18 mg/dL (9-16); Calcium 9.6 mg/dL (8.4-10.2); Carbon Dioxide 28 mmol/L (22-29); Chloride 106 mmol/L (96-108); Estimated Glomerular Filt Rate > 60; Potassium 4.1 mmol/L (3.3-5.1); Sodium 140 mmol/L (135-145)
== END 2025-06-19 06:08 | disposition home or self-care (01) ==
LOC: HO.LAB 06:07
PROVIDERS: Visit Provider Internal Medicine Cardiovascular Disease
DX: R06.02 Shortness of breath (principal)
CPT/HCPCS: 36415; 80048

== ENCOUNTER 2025-06-23 12:13 | Outpatient (REF) | payer MEDICARE, SELFPAY ==
--- OUTSIDE RECORDS SUMMARY | 2024-12-25 05:47 | XMS_ITS | Continuity of Care Document ---
Author Organization [facility] Address [address] [place] [address] Phone Care Team Providers Care Motor Vehicle Light Assembler Name Role Phone Yamile Barba OD Unavailable [...] AFTER 60 MINUTES IF NEEDED - Active pravastatin 80 mg tablet - Active levothyroxine 75 mcg tablet - Active ipratropium bromide 21 mcg [...] on Encounter [facility], [address] [facility], [place], [place], [id number] , tel:[phone] No Information Mar-2 0- 5 Freda Ovalle. [address], [place], [address], [place]. tel:[phone] [facility], [address] [place], [place], [id number] , [place] tel: [phone] [address] No Information Dec-1 5 Freda Ovalle. [address], [facility], [place]. tel:[phone] E&M New moderate complexity [facility], [address] [place], [place], [id number] , [place] tel: [phone] [address] decreased vision (chief complaint) Keratoconjunctiviti s sicca, not specified as Sjogren's, bilateralTrichiasis without entropion right lower eyelidPresence of intraocular lensDrusen (degenerative) of macula, bilateralPeripheral pterygium, stationary, bilateralPresbyopia Meibomian gland dysfunction right eye, upper and lower eyelidsMeibomian gland dysfunction left eye, upper and lower eyelids Mar-0 5- 5 Freda Ovalle. [address], [facility], [place]. tel:[phone] Referring Provider: Yamile Barba, [address], [facility]. tel:[phone] [facility], [address] [place], [place], [id number] , [place] tel: [phone] [address] No Information Sep- 0- 4 Dax Allison. [address], [id number], [place]. tel:[phone] Family History Family Member Type Diagnosis Age At Onset No Information Payers Payer name Insurance type Covered democrat ID Authoriza tion(s) Medicare Traditional MB [id number] BCBS Comm PPO [id number] Social History Type Description Quantity Date Captured [...]
[2025-06-23 12:55] LABS: Hematocrit 35.4 % (37.0-47.0); Hemoglobin 11.5 g/dl (12.0-16.0); Imm Gran Abs Auto 0.03 X10*3/uL (0.00-0.03); Imm Gran Pct Auto 0.5 % (0.0-0.4); Lymphocytes Absolute Auto 1.3 X10*3/uL (1.2-4.9); MANUAL DIFF FLAG SCAN; Mean Corpuscular HGB Conc 32.5 g/dl (31.0-35.0); Mean Corpuscular Hemoglobin 24.9 pg (27.0-33.0); Mean Corpuscular Volume 76.6 fL (80.0-98.0); NRBC Abs Auto 0.000 X10*3/uL (0.0-0.012); NRBC Pct Auto 0.0 /100WBC (0.0-0.2); PLT CLUMP 1; Red Blood Count 4.62 X10*6/uL (4.20-5.50); SCAN SMEAR FLAG 1
[2025-06-23 13:02] LABS: Alanine Aminotransferase 24 U/L (0-31); Albumin Level 4.4 g/dL (3.5-5.0); Alkaline Phosphatase 51 U/L (39-117); Aspartate Amino Transferase 26 U/L (5-31); Total Protein 6.9 g/dL (6.5-8.0)
[2025-06-23 13:15] LABS: White Blood Count 6.2 X10*3/uL (4.8-10.8)
--- OUTSIDE RECORDS SUMMARY | 2025-06-23 16:19 | XMS_ITS | Clinical Summary ---
Author Organization [facility] Address [address] [place] [phone] Care Team Providers Care Silviculture Teacher Name Role Phone Kylie Walker MD Primary [...] Info) Description 07/28/2025 2:30 PM EDT Appointment [facility] [address] [place] [phone] Health Maintenance Due Date Last Done Comments DTaP,Tdap,and Td Vaccines (1 - Tdap) 1962 RSV Immunization Adult Patients (1 - 1-dose 75+ series) 2018 Zoster Vaccines (2 of 2) 11/02/2020 09/07/2020 Falls Risk Assessment 09/06/2022 Medicare Annual Wellness Visit 09/06/2022 Osteoporosis Screening (Bone Density Screening) 09/06/2022 Social Influencers of Health Screening 09/06/2022 Depression Screening 10/08/2024 COVID-19 Vaccine ( season) 2025 Influenza Vaccine (#1) 2025 0, 07/11/2018, 06/19/2017, [...] complete this topic Insurance MEDICARE Care Teams Silviculture Teacher Relationship Specialty Start Date End Date Kylie Walker MD [address] [place] [phone] PCP - General Internal Medicine 04/21/25
--- OUTSIDE RECORDS SUMMARY | 2025-06-23 16:19 | XMS_ITS | Patient Health Record ---
Author Organization [facility] Address [address] [place] [address] Care Team Providers Care Kier Tender Name Role Phone Dawood KUMARI, Kylie Primary Care Provider Unav ailhumera Flaco Bustos Unavailable [phone] Allergies No Known Allergies Results Component Value Reference Range Notes Complete Blood Count Auto Di ff (Not yet reviewed by provider) Interpretation: Performing Lab:[facility], [address] [place] [address] Notes/Report: White Blood Count 6.2 4.8-10.8 X10*3/uL Red Blood Count 4.62 4.20-5.50 X10*6/uL Hemoglobin 11.5 12.0-16.0 g/dl Hematocrit 35.4 37.0-47.0 % Mean Corpuscular Volume 76.6 80.0-98.0 fL Mean Corpuscular Hemoglobin 24.9 27.0-33.0 pg Mean Corpuscular HGB Conc 32.5 31.0-35.0 g/dl Neutrophils Percent Auto 67.5 45-73 % Imm Gran Pct Auto 0.5 0.0-0.4 % Lymphocytes Percent Auto 21.6 20-40 % Monocytes Percent Auto 8.5 2-11 % Eosinophils Percent Auto 1.1 0-4 % Basophils Percent Auto 0.8 0-2 % NRBC Pct Auto 0.0 0.0-0.2 /100WBC Neutrophils Absolute Auto 4.2 2.0-8.3 x10*3/u L Imm Gran Abs Auto 0.03 0.00-0.03 X10*3/uL Lymphocytes Absolute Auto 1.3 1.2-4.9 X10*3/u L Monocytes Absolute Auto 0.5 0.1-1.2 X10*3/uL Eosinophils Absolute Auto 0.1 0.0-0.4 X10*3/u L Basophils Absolute Auto 0.1 0.0-0.2 X10*3/uL NRBC Abs Auto 0.000 0.0-0.012 X10*3/uL White Blood Count 6.2 4.8-10.8 X10*3/uL Red Blood Count 4.62 4.20-5.50 X10*6/uL Hemoglobin 11.5 12.0-16.0 g/dl Hematocrit 35.4 37.0-47.0 % Mean Corpuscular Volume 76.6 80.0-98.0 fL Mean Corpuscular Hemoglobin 24.9 27.0-33.0 pg Mean Corpuscular HGB Conc 32.5 31.0-35.0 g/dl Neutrophils Percent Auto 67.5 45-73 % Imm Gran Pct Auto 0.5 0.0-0.4 % Lymphocytes Percent Auto 21.6 20-40 % Monocytes Percent Auto 8.5 2-11 % Eosinophils Percent Auto 1.1 0-4 % Basophils Percent Auto 0.8 0-2 % NRBC Pct Auto 0.0 0.0-0.2 /100WBC Neutrophils Absolute Auto 4.2 2.0-8.3 x10*3/u L Imm Gran Abs Auto 0.03 0.00-0.03 X10*3/uL Lymphocytes Absolute Auto 1.3 1.2-4.9 X10*3/u L Monocytes Absolute Auto 0.5 0.1-1.2 X10*3/uL Eosinophils Absolute Auto 0.1 0.0-0.4 X10*3/u L Basophils Absolute Auto 0.1 0.0-0.2 X10*3/uL NRBC Abs Auto 0.000 0.0-0.012 X10*3/uL Liver Panel (Not yet reviewe d by provider) Interpretation: Performing Lab:[facility], [address] [place] [phone] Notes/Report: Bilirubin Total 0.4 0.0-1.0 mg/dL Bilirubin Direct 0.2 0.0-0.5 mg/dL Aspartate Amino Transferase 26 5-31 U/L Alanine Aminotransferase 24 0-31 U/L Total Protein 6.9 6.5-8.0 g/dL Albumin Level 4.4 3.5-5.0 g/dL Alkaline Phosphatase 51 39-117 U/L SLIDE REVIEW (Not yet review ed by provider) Interpretation: Performing Lab:[facility], [address] [place] [phone] Notes/Report: SLIDE REVIEW VERIFIED Reason For Referral No Information Medications Medication SIG (Take, Route, Frequency, Duration) Notes Start Date End Date Status Metoprolol Succinate 25 MG 1 capsule Ora lly Once a day for 30 day(s) 06/23/2025 Active Czzgpm-Novv-UDK-Uw-I-BfKg-Se Cu - as directed Orally 06/23/2025 Active Aspirin 81 81 MG 1 tablet Orally Once a day for 30 day(s) 06/23/2025 Active Garlic 1200 MG as directed Orally 06/23/2025 Active Krill Oil 350 MG as directed Orally 06/23/2025 Active Cyanocobalamin 1000 MCG as directed Orally 025 Active Bioflex - as directed Orally 06/23/2025 Active Pravastatin Sodium 80 MG 1 tablet Orally Once a day for 30 day(s) 06/23/2025 Active CoQ-10 200 MG as directed Orally 06/23/2025 Active Folic Acid 1 MG 1 tablet Orally Once a day for 30 day(s) 06/23/2025 Active Magnesium 400 MG as directed Orally 06/23/2025 Active Levothyroxine Sodium 75 MCG 1 tablet in the morning on an empty stomach Orally Once a day for 30 day(s) 06/23/2025 Active Turmeric 500 MG as directed Orally 06/23/2025 Active PreserVision AREDS - as directed Orally 06/23/2025 Active Calcium + D3 250-3 MG-MCG 1 tablet Orall y Once a day for 30 day(s) 06/23/2025 Active Ipratropium Saffell 0.03 % 2 sprays in e ach nostril Nasally Twice a day for 30 day(s) 06/23/2025 Active Multi Vitamin - 1 tablet Orally Once a day for 30 day(s) 06/23/2025 Active Immunizations Vaccine Route Administration Date Status Comme nts Influenza Unknown 06/23/2025 Administered Social History Tobacco Use: Social History Observation Description Date Details (start date - stop date) Never Smoker NA - NA Tobacco Control (Standard) Question Answer Notes Tobacco use: Nonsmoker AUDIT-C (Standard) Question Answer Notes Did you have a drink contain ing alcohol in the past year? Yes How often did you have a dri nk containing alcohol in the past year? 2 to 3 times a week (3 points) How many drinks did you have on a typical day when you were drinking in the past year? 1 or 2 drinks (0 point) How often did you have six o r more drinks on one occasion in the past year? Never (0 point) Points 3 Interpretation Positive Problems Problem Type SNOMED Code ICD Code Onset Dates Problem Status W/U Status Risk Notes Problem Upper abdominal pain (80381800) Upper abdominal pain, unspecified (R10.10) Active confirmed Problem Iron deficiency anemia (87184546) Iron deficiency anemia (D50.9) Active confirmed Problem Gastroesophageal reflux disease (152340283) GERD (gastroesophag eal reflux disease) (K21.9) Active confirmed Vital Signs Temperature 98.2 degrees Fahrenheit 06/23/2025 Blood pressure diastolic 01 mm Hg 06/23/2025 Height 64 in 06/23/2025 Blood pressure systolic 001 mm Hg 06/23/2025 Weight 139 lbs 06/23/2025 BMI 23.86 kg/m2 06/23/2025 Procedures Procedure Date Ordered Date Performed Result Body Sit e UPPER GI ENDOSCOPY 06/23/2025 N/A Encounters Encounter Location Date Provider Diagnosis [facility] [address] [facility] [address] [place] [phone] 06/23/2025 Flaco Bustos Iron deficiency anem ia D50.9 ; GERD (gastroesophageal reflux disease) K21.9 and Upper abdominal pain, unspecified R10.10 Assessments Encounter Date Diagnosis (ICD Code) Assessment Notes Treatment Notes Treatment Clinical Notes Section Notes 06/23/2025 Iron deficiency anemia (ICD-10 - D50.9) 06/23/2025 GERD (gastroesophagea l reflux disease) (ICD-10 - K21.9) 06/23/2025 Upper abdominal pain, unspecified (ICD-10 - R10.10) Plan Of Treatment Pending Test Test Name Order Date UPPER GI ENDOSCOPY 06/23/2025 LIVER PROFILE 06/23/2025 CBC w DIFF 06/23/2025 Complete Blood Count Auto Diff Liver Panel 06/23/2025 SLIDE REVIEW 06/23/2025 Next Appt Details Provider Name:Flaco Bustos , 07/06/2025 02:50:00 PM, [address] [place] [address] , [place], [place], [phone], Insurance Providers Payer Name Payer Address Payer Phone Subscriber Number Group Number Insured Name Patient Relationship to Insured Coverage Start Date Coverage End Date MEDICARE OF [place] [address] [place] [address] [phone] [id number] RHONDA SILVA Self - patient is the insured 8 [employer] CLAIMS [address] [place] [phone] [id number] RHONDA SILVA Self - patient is the insured 8 Medical (General) History Medical History History ICD Code Breast cancer Denies [place],DM,CVA,Lung disease,renal dise ase Iron deficiency anemia SVT-Metoprolol as needed Multiple colonoscopies with Dr. Londono-last one age 73---she reports a history of some polyps Surgical History Surgery Date(Month/Year) bilateral mastectomy 2004 c section
[2025-07-13 10:08] LABS: Platelet Count 159 X10*3/uL (160-400)
== END 2025-06-23 12:14 | disposition home or self-care (01) ==
LOC: HO.LAB 12:13
PROVIDERS: PCP Internal Medicine; Visit Provider Internal Medicine
DX: K21.9 Gastro-esophageal reflux disease without esophagitis (principal); D50.9 Iron deficiency anemia, unspecified; R10.10 Upper abdominal pain, unspecified
CPT/HCPCS: 36415; 80076; 85025

== ENCOUNTER 2025-06-29 07:30 | Outpatient (RCR) | payer MEDICARE, SELFPAY ==
[2025-05-27 07:28] VITALS: BP 126/56; PULSE 74; RESP 16; TEMP 36.6; O2SAT 98
[2025-06-02 07:24] VITALS: BP 160/61; PULSE 72; RESP 16; TEMP 36.1; O2SAT 99
[2025-06-02 07:38] VITALS: BP 154/75; PULSE 66
[2025-06-09 07:35] VITALS: BP 119/53; PULSE 75; RESP 18; TEMP 36.6
[2025-06-15 07:26] VITALS: BP 123/57; PULSE 78; RESP 16; TEMP 36.6; O2SAT 99
[2025-06-22 07:32] VITALS: BP 145/61; PULSE 79; RESP 16; TEMP 36.6; O2SAT 96
[2025-06-29 07:30] VITALS: BP 124/67; PULSE 80; RESP 16; TEMP 36.7; O2SAT 99
== END 2025-06-29 08:11 | disposition home or self-care (01) ==
LOC: HO.INF 07:30
PROVIDERS: Visit Provider Nurse Practitioner Family
DX: E61.1 Iron deficiency (principal); D64.9 Anemia, unspecified
CPT/HCPCS: 96365; J1756

== ENCOUNTER 2025-06-29 15:12 | Outpatient (AMB) | payer MEDICARE, SELFPAY ==
--- NOTE | 2025-06-29 15:38 | MHC.OFFVIS ---
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: No Single Stayer Operator: Single Stayer Operator Present Accompanied by: Child Allergies No Known Allergies Allergy (Verified 05/27/25 14:40) Medication List - Last Reconciled 06/29/25 by Neville Guevara MD calcium carbonate (Calcium 600) 600 mg PO DAILY coenzyme Q10 (Ultra CoQ10) 75 mg PO DAILY cyanocobalamin (vitamin B-12) 1,000 mcg IM USEASDIRECTD cyclosporine 0.05% (Restasis) 1 drp ophthalmic (eye) BID cyclosporine 0.1% (Vevye) 1 drp ophthalmic (eye) BID folic acid 1 mg PO DAILY garlic 1,000 mg PO DAILY ibuprofen (Advil) 200 mg PO Q6H PRN levothyroxine 75 mcg PO DAILY magnesium gluconate (Mag-G) 54 mg PO DAILY metoprolol tartrate 25 mg PO DAILY PRN multivitamin 1 tab PO DAILY omega-3 acid ethyl esters 1 cap PO DAILY pravastatin 80 mg PO BEDTIME syringe with needle (Syringe 3cc/22Gx3/4 ) As Directed syringe with needle As Directed turmeric 400 mg PO DAILY vitamins A,C,V-ziku-ckbcix 4,296 mcg-226 mg-90 mg (PreserVision AREDS) 1 cap PO BID HPI Comments Details: Patient comes for follow-up. Status post transfusion and iron replacement therapy as well as B12 and folic acid. Her hemoglobin and hematocrit has improved. She has not started walking in his symptoms of shortness of breath have improved. She does not have much lightheadedness. She had 1 episode of SVT for which she had to take metoprolol twice lasted about 3 hours. No associated chest pain. She underwent a coronary CTA as there was concern based on the EKG although myocardial perfusion imaging was within normal limits. This suggest mid LAD calcified plaque which can not rule out significant stenosis of the need. She has no exertional chest pain. She was started on aspirin therapy. She is already on a statin therapy. [facility] Surgical History Hx of bilateral mastectomy Social History Household Members: Spouse Housing: House Are you a primary certified caregiver to a significant other at home: No Do you presently have visiting nurse or other home services: No Patient Tobacco Use Status: Never used Tobacco service: No Current occupational status: retired Review of Systems Const Denies chills, Denies fatigue, Denies fever(s), Denies frequent falls, Denies weakness, Denies weight gain and Denies weight loss ENT Denies dizziness Card Denies chest pain, Denies leg edema, Denies lightheadedness, Denies palpitations, Denies dyspnea, Denies dyspnea on exertion, Denies orthopnea and Denies other (loss of consciousness) Resp Denies cough, Denies dyspnea and Denies dyspnea on exertion GI Denies hematochezia and Denies change in stool character Musc Denies abnormal gait, Denies muscle weakness, Denies numbness, Denies radiating pain into limb and Denies tingling Neuro Denies Abnormal speech present, Denies abnormal gait, Denies dizziness, Denies frequent falls, Denies numbness, Denies tingling and Denies weakness Endo Denies fatigue and Denies palpitations Physical Exam Vital Signs: Last Vital Signs Pulse 63 06/29/25 15:40 BP 110/68 06/29/25 15:40 BMI result Body Mass Index 24.2 Const General: cooperative, comfortable, no acute distress, well developed, alert, awake, Physically active and well groomed Nutritional Appearance: well nourished and overweight Orientation/consciousness: patient oriented x3 Limitations: no limitations HEENT Head: Yes normocephalic and Yes atraumatic Neck Neck: Yes trachea midline, Yes supple and Yes no JVD Resp Effort & Inspection: normal respiratory effort Auscultation: clear to auscultation bilaterally Cardio Jugular venous distension: no JVD Palpation: normal PMI Rate: regular rate Rhythm: regular rhythm Heart sounds: S1 normal heart sound present, S2 normal heart sound present, no click, no gallops and no murmurs GI Auscultation: normal bowel sounds Skin General skin exam: no rashes or lesions noted Neuro General: patient oriented x3 and no focal motor deficits Speech: No Abnormal speech present Extrem General: Yes no clubbing, cyanosis or edema Psych Appearance: grossly normal Affect: Anxious affect present Assessment & Plan Assessment & Plan (1) Paroxysmal SVT (supraventricular tachycardia): Code(s): I47.10 - Supraventricular tachycardia, unspecified Category: Medical Plan: Patient with paroxysmal SVT for many many years. She has not tolerated long-term beta-charmaine therapy. We discussed vagal maneuvers. Also discussed use of metoprolol as she is doing currently as she can not tolerate emt intermediate metoprolol therapy. If she persists with continued episode may consider ablation therapy. Avoidance of stimulants was discussed. Stress mitigation strategies were discussed. (2) CAD (coronary artery disease): Code(s): I25.10 - Atherosclerotic heart disease of [place] coronary artery without angina pectoris Category: Medical Plan: CAD noted by coronary CTA with possible significant stenosis in the mid LAD although she has no symptoms of angina in his symptoms exertional shortness of breath have improved with treatment of anemia. Will continue medical management at this point time given that she might have GI blood loss and interventional therapy would be risky for her. She is currently not having any exertional symptoms. Advised to continue monitor her symptoms. Continue statin therapy with target goal LDL less than 70 mg/dL. Continue aggressive blood pressure control. Advised her to gradually increase her activity level and if she gets worsening symptoms will pursue invasive therapy once her anemia has been corrected (3) Preoperative cardiovascular examination: Code(s): Z01.810 - Encounter for preprocedural cardiovascular examination Plan: Preoperative cardiovascular risk stratification for upper endoscopy. She is currently optimized to undergo this procedure with low to intermediate risk for perioperative cardiovascular morbidity mortality. Will follow up in the clinic in 6 months time, sooner PRN. Thank you for allowing me to partake in her care Coding Level of Care Code Est Pt Level 4 (47212) Complex EM visit Add On G2211 Diagnoses Paroxysmal SVT (supraventricular tachycardia) I47.10 CAD (coronary artery disease) I25.10 Preoperative cardiovascular examination Z01.810
[2025-06-29 15:40] VITALS: BP 110/68; PULSE 63; BMI 24.2
== END 2025-06-29 16:12 | disposition home or self-care (01) ==
LOC: HO.HCS 15:13
PROVIDERS: PCP Internal Medicine; Visit Provider Internal Medicine Cardiovascular Disease
DX: I47.10 Supraventricular tachycardia, unspecified (principal); I25.10 Atherosclerotic heart disease of native coronary artery without angina pectoris; Z01.810 Encounter for preprocedural cardiovascular examination
CPT/HCPCS: 99214; G2211

== ENCOUNTER → 2025-06-29 15:12 | Outpatient (BNVA) | payer MEDICARE, SELFPAY | PROVIDERS: PCP Internal Medicine; Visit Provider Internal Medicine Cardiovascular Disease | DX: Z01.810 Encounter for preprocedural cardiovascular examination (principal); D64.9 Anemia, unspecified; I47.10 Supraventricular tachycardia, unspecified; I25.10 Atherosclerotic heart disease of native coronary artery without angina pectoris | CPT/HCPCS: 99212 ==

== ENCOUNTER 2025-07-06 13:21 | Day surgery (SDC) | payer MEDICARE, SELFPAY ==
--- NOTE | 2025-07-02 09:41 | HO.ANESPROP2 ---
Documented by User: Nicole Humphreys NP 07/02/25 09:56 HPI - Anesthesia Eval Consult details Narrative: 80 yr old female for upper endoscopy [place] [facility] [place], Dr. Guevara 06/29/25 for cardiac clearance: Preoperative cardiovascular risk stratification for upper endoscopy. She is currently optimized to undergo this procedure with low to intermediate risk for perioperative cardiovascular morbidity mortality. CAD noted by coronary CTA done at [facility] 06/25/25: Pt met with Dr. Guevara to review on 06/29/25, he notes possible significant stenosis in the mid LAD although she has no symptoms of angina in his symptoms exertional shortness of breath have improved with treatment of anemia. Will continue medical management at this point time given that she might have GI blood loss and interventional therapy would be risky for her. She is currently not having any exertional symptoms . Paroxysmal SVT for years: cannot tolerate regular use of metoprolol (uses prn), she is aware of vagal maneuvers; cardiology discussed possible ablation if persisting PMFSH Active Problems Active Problems: All Active Problems CAD (coronary artery disease) (Acute) Iron deficiency (Acute) B12 deficiency (Acute) Anemia (Acute) Abnormal stress test (Acute) Lightheadedness (Acute) Short of breath on exertion (Acute) Paroxysmal SVT (supraventricular tachycardia) (Acute) Past Medical History Medical History History of high cholesterol Hx of thyroid disease SVT (supraventricular tachycardia) Hx of transfusion of packed red blood cells Breast cancer Surgical History Surgical History Hx of section H/O colonoscopy History of esophagogastroduodenoscopy (EGD) Hx of bilateral mastectomy (~2004) Social History Social History Household Members: Spouse Housing: House Are you a primary primary care coordinator to a significant other at home: No Do you presently have visiting nurse or other home services: No Patient Tobacco Use Status: Never used Tobacco Use of substances other than those prescribed or required for medical reasons: No Are you DNR?: No Advance Directives: No Advance Directives Information Provided: Yes service: No Current occupational status: retired Meds Allergies Allergy/AdvReac Type Severity Reaction Status Date / Time No Known Allergies Allergy Verified 07/06/25 13:47 Home Medications ?Medication ?Instructions ?Recorded ?Confirmed ?Last Taken ?Type cyclosporine 0.05 % eye drops in a 1 drp ophthalmic (eye) BID 04/30/25 06/29/25 Unknown History dropperette (Restasis) cyclosporine 0.1 % eye drops 1 drp ophthalmic (eye) BID 04/30/25 06/29/25 Unknown History (Vevye) garlic 1,000 mg capsule 1,000 mg PO DAILY 04/30/25 07/03/25 Unknown History levothyroxine 75 mcg tablet 75 mcg PO DAILY 04/30/25 07/03/25 Unknown History multivitamin 1 tab PO DAILY 04/30/25 07/03/25 Unknown History pravastatin 80 mg tablet 80 mg PO BEDTIME 04/30/25 07/03/25 Unknown History aspirin 81 mg tablet,delayed 81 mg PO DAILY 07/03/25 07/03/25 06/29/25 History release calcium 500 mg (as 1 tab PO DAILY 07/03/25 07/03/25 Unknown History carbonate)-vitamin D3 3.125 mcg (125 unit) tablet coQ10 (ubiquinol) 200 mg capsule 200 mg PO DAILY 07/03/25 07/03/25 Unknown History emxgrdzeqgo-jci-ftuvjqgan-hrb 1 tab PO DAILY 07/03/25 07/03/25 Unknown History 149-hyalur 500 mg-500 mg-66.7 mg tablet (Dibdhfdmaoz-Oqnhxmhbpfo-UFB (with antiox)) ipratropium bromide 21 mcg (0.03 2 spray intranasal BID 07/03/25 07/03/25 Unknown History %) nasal spray krill 350 mg-omega-3 90 mg-dha 24 1 cap PO DAILY 07/03/25 07/03/25 06/29/25 History mg-epa 50 uz-khoweff-wboba capsule magnesium oxide 400 mg PO DAILY 07/03/25 07/03/25 Unknown History turmeric root extract 500 mg 500 mg PO DAILY 07/03/25 07/03/25 06/29/25 History capsule vit tab PO 07/03/25 Unknown History R-ttwhvtx-igrvsnkrk-rutin-escd219 500 mg-50 mg-25 mg-40 mg tablet (Bioflex) vitamins A,C,B-ldmw-ybemvz 2,148 2 tab PO BID 07/03/25 07/03/25 Unknown History mcg-113 mg-45 mg-17.4 mg tablet (PreserVision AREDS) Exam Narrative Narrative: Stress Test 05/2025 Exercise stress test with exercise 5 mins of Magdy Protocol held at [facility], achieving 93% MPHR, with reports of feeeling very fatigued, lightheded and SOB, with isolated PACs and PVCs, with normotensive response to exercise. With ST depression inferiorly and in leads V4- V6 and ST elevation in aVR, meetingcriteria for ischemia. In recovery, pt's symsptoms improving and feeeling back to baseline. ST sgement improved to baseline. Test reviewed with Dr. Guevara. Will arrange for cardiac cath. ECHO 02/2025 Conclusions: - 1. Normal LV ejection fraction 55-60% with grade 2 diastolic dysfunction 2. Moderately dilated left atrium 3. Mild aortic and mitral regurgitation 4. Mildly elevated right ventricular systolic pressure with mildly elevated right atrial pressures 5. No gross pericardial effusion Coronary CTA 06/25/25 Documented by User: Yolanda Pereyra MD 07/06/25 14:50 [facility] Past Medical History Medical History History of high cholesterol Hx of thyroid disease SVT (supraventricular tachycardia) Hx of transfusion of packed red blood cells Breast cancer Surgical History Surgical History Hx of section H/O colonoscopy History of esophagogastroduodenoscopy (EGD) Hx of bilateral mastectomy (~2004) History of Problems with Anesthesia: No Social History Social History Household Members: Spouse Housing: House Are you a primary primary care coordinator to a significant other at home: No Do you presently have visiting nurse or other home services: No Patient Tobacco Use Status: Never used Tobacco Use of substances other than those prescribed or required for medical reasons: No Are you DNR?: No Advance Directives: No Advance Directives Information Provided: Yes service: No Current occupational status: retired Meds Allergies Allergy/AdvReac Type Severity Reaction Status Date / Time No Known Allergies Allergy Verified 07/06/25 13:47 Home Medications ?Medication ?Instructions ?Recorded ?Confirmed ?Last Taken ?Type cyclosporine 0.05 % eye drops in a 1 drp ophthalmic (eye) BID 04/30/25 06/29/25 Unknown History dropperette (Restasis) cyclosporine 0.1 % eye drops 1 drp ophthalmic (eye) BID 04/30/25 06/29/25 Unknown History (Vevye) garlic 1,000 mg capsule 1,000 mg PO DAILY 04/30/25 07/03/25 Unknown History levothyroxine 75 mcg tablet 75 mcg PO DAILY 04/30/25 07/03/25 Unknown History multivitamin 1 tab PO DAILY 04/30/25 07/03/25 Unknown History pravastatin 80 mg tablet 80 mg PO BEDTIME 04/30/25 07/03/25 Unknown History aspirin 81 mg tablet,delayed 81 mg PO DAILY 07/03/25 07/03/25 06/29/25 History release calcium 500 mg (as 1 tab PO DAILY 07/03/25 07/03/25 Unknown History carbonate)-vitamin D3 3.125 mcg (125 unit) tablet coQ10 (ubiquinol) 200 mg capsule 200 mg PO DAILY 07/03/25 07/03/25 Unknown History vdvltwwvdkx-bny-oanrbbpzj-hrb 1 tab PO DAILY 07/03/25 07/03/25 Unknown History 149-hyalur 500 mg-500 mg-66.7 mg tablet (Bwtkjbmgjeb-Whlsfeecjqm-FHF (with antiox)) ipratropium bromide 21 mcg (0.03 2 spray intranasal BID 07/03/25 07/03/25 Unknown History %) nasal spray krill 350 mg-omega-3 90 mg-dha 24 1 cap PO DAILY 07/03/25 07/03/25 06/29/25 History mg-epa 50 yc-tfdvtgn-esmln capsule magnesium oxide 400 mg PO DAILY 07/03/25 07/03/25 Unknown History turmeric root extract 500 mg 500 mg PO DAILY 07/03/25 07/03/25 06/29/25 History capsule vit tab PO 07/03/25 Unknown History D-bletaxl-bwdeqyqov-rutin-prgb648 500 mg-50 mg-25 mg-40 mg tablet (Bioflex) vitamins A,C,D-nzcc-srgeco 2,148 2 tab PO BID 07/03/25 07/03/25 Unknown History mcg-113 mg-45 mg-17.4 mg tablet (PreserVision AREDS) Exam Airway Mallampati Class: II TM Dist: >3cm Neck ROM: Limited Loose/Missing/Broken Teeth: No Heart: RRR Lungs: CTA Assessment and Plan Assessment Anesthesia Assessment: Anesthesia Plan Discussed and Chart Reviewed Final Anesthetic Review History of Problems with Anesthesia: No NPO: Yes ASA Class: III Final Preanesthetic Review: Meds/Allgs Chart Reviewed, Consent Obtained/Reviewed and Anes Risks/Benef Reviewed Patient Risk: Intermediate Procedure Risk: Intermediate Anesthetic Plan Anesthetic Plan: MAC: Disposition: Standard PACU
[2025-07-02 14:34] VITALS: BMI 24.1
[2025-07-06 13:50] VITALS: BMI 23.0
[2025-07-06 14:04] VITALS: BP 141/65; PULSE 65; RESP 16; TEMP 36.1; O2SAT 99
[2025-07-06] MEDS: Lactated Ringers 1,000 ML 100 ML IVCONT (14:21)
[2025-07-06 15:15] VITALS: BP 97/54; PULSE 57; RESP 18; TEMP 36.1; O2SAT 100
--- NOTE | 2025-07-06 15:27 | P.BOP_ITS ---
Brief Operative Note Date of Service: 07/06/25 Pre-op diagnosis: Anemia Post-op diagnosis: other (Erosive gastritis) Procedure: EGD with biopsies Surgeon: Flaco Bustos MD Anesthesia: MAC Was an Graphic Artist used for this Procedure?: No Estimated blood loss (mL): 2.0 Pathology: other (A. 2nd/3rd portions of duodenum B. Gastric antrum) Condition: stable Disposition: PACU
[2025-07-06 15:30] VITALS: BP 121/67; PULSE 61; RESP 20; TEMP 36.1; O2SAT 98
--- NOTE | 2025-07-07 01:58 | OP_ITS ---
DATE OF SERVICE: 07/06/2025 SURGEON: Flaco Bustos MD INDICATIONS: The patient presents for evaluation of upper abdominal discomfort, anemia, and gastroesophageal reflux. Full consent has been obtained from her for this, including risks of bleeding and perforation. PREOPERATIVE DIAGNOSIS: POSTOPERATIVE DIAGNOSIS: PROCEDURE PERFORMED: Esophagogastroduodenoscopy with biopsies. ESTIMATED BLOOD LOSS: COMPLICATIONS: ANESTHESIA: Monitored anesthesia care. ASSISTANTS: SPECIMENS: PREOPERATIVE DIAGNOSES: Gastroesophageal reflux, abdominal discomfort, and anemia. POSTOPERATIVE DIAGNOSES: Gastroesophageal reflux, abdominal discomfort, anemia, erosive gastritis, rule out celiac disease, small hiatal hernia. DESCRIPTION OF PROCEDURE: The patient was placed in the left lateral decubitus position. The Olympus video gastroscope was passed in the posterior oropharynx and upper esophagus under direct vision. The scope was passed slowly to the distal esophagus. The gastroesophageal junction appeared at 37 cm. This area appeared normal without any sign of esophagitis nor Darden's esophagus. There was a small hiatal hernia. The scope was advanced to pylorus. The duodenum was cannulated to the descending portion. The duodenum including the bulb appeared normal without mass or ulceration. Biopsies were obtained from the 2nd and 3rd portions of duodenum. The scope was withdrawn back into the stomach. The pylorus was normal without any sign of polyp or other abnormality. The gastric antrum had areas of some erosions with underlying edema, but no sign of any significant polypoid lesion or other significant abnormality. There was good peristalsis. Biopsies were obtained from the gastric antrum. The scope was retroflexed visualizing the proximal stomach carefully, which appeared normal, without any sign of mass or ulceration. The scope was straightened. The scope was withdrawn back to the esophagus. The esophageal mucosa appeared normal. The scope was withdrawn from the patient. She tolerated the procedure well and was returned to the recovery area in stable condition. IMPRESSION: 1. Erosive gastritis. 2. Rule out celiac disease. 3. Small hiatal hernia. PLAN: The results of the biopsies will be checked. If H pylori is present in the biopsies, I would recommend treating that. She will start a PPI and continue iron. She has been off aspirin for about a week now. I did advise her to speak with Dr. Guevara as to whether or not she needs that long-term. If possible, it would be best that she stay off all aspirin and NSAIDs. I would recommend a colonoscopy in the relatively near future given her anemia and no major findings on today's endoscopy, although certainly the erosive gastritis over time could cause anemia. But nonetheless, I think it would be reasonable that she undergo a colonoscopy as it has been quite a while since her last exam, which she believes was at approximately age 73. This has been discussed with the patient and her daughter. MD RAVEN Hdz/JUANA / [id number] MTDD
== END 2025-07-06 15:54 | disposition home or self-care (01) ==
PROVIDERS: PCP Internal Medicine; Visit Provider Internal Medicine
PROC: 0DJ08ZZ Inspection of Upper Intestinal Tract, Via Natural or Artificial Opening Endoscopic (ICD-10-PCS; CPT 43235; principal; 2025-07-06 14:50)
DX: K21.9 Gastro-esophageal reflux disease without esophagitis (principal); D50.9 Iron deficiency anemia, unspecified; R10.10 Upper abdominal pain, unspecified; K29.60 Other gastritis without bleeding; K44.9 Diaphragmatic hernia without obstruction or gangrene; Z80.0 Family history of malignant neoplasm of digestive organs; I47.10 Supraventricular tachycardia, unspecified; Z85.3 Personal history of malignant neoplasm of breast; Z90.13 Acquired absence of bilateral breasts and nipples; Z79.82 Long term (current) use of aspirin; Z79.899 Other long term (current) drug therapy
CPT/HCPCS: 43239; 88305; 88313; 88342; J2003; J2704

== ENCOUNTER 2025-08-19 12:16 | Day surgery (SDC) | payer MEDICARE, SELFPAY ==
--- OUTSIDE RECORDS SUMMARY | 2025-07-06 10:50 | XMS_ITS ---
Author Organization [facility] Address [address] [place] [address] Care Team Providers Care Au Pair Name Role Phone Dawood KUMARI, Kylie Primary Care Provider Unav Flaco Alvarez Unavailable [phone] REASON FOR VISIT fe def anemia,gerd,upper abd pain Encounters Encounter Location Date Provider Diagnosis [facility] [address] [place] [phone] 07/06/2025 Flaco Bustos Plan Of Treatment Next Appt Details Provider Name:Flaco Bustos , 08/19/2025 02:10:00 PM, [address] [place] [address] , [place], [place], [phone], Progress Notes * CATRACHO SILVAJACKB: 3 (80 yo F)Acc No.[id number]:07/06/2025 EGD/MAC Patient: RHONDA RAWLS Provider: Juan Bustos MD :1945 A ge:80 Y S ex:Female Date:07/06/2025 Address:[address] [place], [place] [address] Pcp:Kylie Seay MD Subjective: * Chief Complaints: * 1 . Fe def anemia,gerd,upper abd pain. * Medical History: Objective: * Vitals: Assessment: Plan: * Treatment: * * The named appointment provid er may or may not be the originator of this progress note, and it is not deemed complete until electronically signed by the appointment provider. Sign off status: Pending * Provider: Juan Bustos MD Date: 0 07/06/2025 Generated for Printi ng/Dante/Derikitting on: 1 02:57 PM EDT
--- OUTSIDE RECORDS SUMMARY | 2025-07-28 14:58 | XMS_ITS | Patient Health Record ---
Author Organization [facility] Address [address] [place] [address] Care Team Providers Care Public Service Representative Name Role Phone Dawood KUMARI, Kylie Primary Care Provider Unav ailhumera Flaco Bustos Unavailable [phone] Allergies No Known Allergies Results Component Value Reference Range Notes Complete Blood Count Auto Di ff (Not yet reviewed by provider) Interpretation: Performing Lab:[facility], [address] [place] [address] Notes/Report: White Blood Count 6.2 4.8-10.8 X10*3/uL [...] Mean Corpuscular HGB Conc 32.5 31.0-35.0 g/dl Platelet Count 159 160-400 X10*3/uL Neutrophils Percent Auto 67.5 45-73 % Imm [...] Abs Auto 0.000 0.0-0.012 X10*3/uL Liver Panel Reviewed date:06/23/2025 06:17:19 PM Interpretation: Performing Lab:[address] [address] Notes/Report: Bilirubin Total 0.4 0.0-1.0 mg/dL Bilirubin Direct 0.2 0.0-0.5 mg/dL Aspartate Amino Transferase 26 5-31 U/L Alanine Aminotransferase 24 0-31 U/L Total Protein 6.9 6.5-8.0 g/dL Albumin Level 4.4 3.5-5.0 g/dL Alkaline Phosphatase 51 39-117 U/L SLIDE REVIEW Reviewed date:07/17/2025 01:18:29 AM Interpretation: Performing Lab:[address] [id number] Notes/Report: SLIDE REVIEW VERIFIED Pathology (Not yet reviewed by provider) Interpretation: Performing Lab:[address] [address] Notes/Report: Reason For Referral No Information Medications Medication SIG (Take, Route, Frequency, Duration) Notes Start Date End Date Status Metoprolol Succinate 25 MG 1 capsule Ora lly Once a day; Duration: 30 day(s) 06/23/2025 Active Ihimir-Qdjs-CQB-Ti-R-KfGn-Se Cu - as directed Orally 06/23/2025 Active Omeprazole 20 MG 1 capsule Orally Onc e a day every morning; Duration: 30 days 07/07/2025 Active Aspirin 81 81 MG 1 tablet Orally Once a day; Duration: 30 day(s) 06/23/2025 Active Garlic 1200 MG as directed Orally 06/23/2025 Active Krill Oil 350 MG as directed Orally 06/23/2025 Active Cyanocobalamin 1000 MCG as directed Orally 025 Active Bioflex - as directed Orally 06/23/2025 Active Pravastatin Sodium 80 MG 1 tablet Orally Once a day; Duration: 30 day(s) 06/23/2025 Active CoQ-10 200 MG as directed Orally 06/23/2025 Active Folic Acid 1 MG 1 tablet Orally Once a day; Duration: 30 day(s) 06/23/2025 Active Magnesium 400 MG as directed Orally 06/23/2025 Active Levothyroxine Sodium 75 MCG 1 tablet in the morning on an empty stomach Orally Once a day; Duration: 30 day(s) 06/23/2025 Active Turmeric 500 MG as directed Orally 06/23/2025 Active PreserVision AREDS - as directed Orally 06/23/2025 Active Calcium + D3 250-3 MG-MCG 1 tablet Orall y Once a day; Duration: 30 day(s) 06/23/2025 Active Ipratropium [place] 0.03 % 2 sprays in e ach nostril Nasally Twice a day; Duration: 30 day(s) 06/23/2025 Active Multi Vitamin - 1 tablet Orally Once a day; Duration: 30 day(s) 06/23/2025 Active Immunizations Vaccine Route [...] Status Risk Notes Problem Upper abdominal pain (22788296) Upper abdominal pain, unspecified (R10.10) Active confirmed Problem Iron deficiency anemia (87135885) Iron deficiency anemia (D50.9) Active confirmed Problem Gastroesophageal reflux disease (746566844) GERD (gastroesophag eal reflux disease) (K21.9) Active confirmed Vital Signs Temperature 98.2 degrees Fahrenheit 06/23/2025 Blood pressure diastolic 01 mm Hg 06/23/2025 Height 64 in 06/23/2025 Blood pressure systolic 001 mm Hg 06/23/2025 Weight 139 lbs 06/23/2025 BMI 23.86 kg/m2 06/23/2025 Procedures Procedure Date Ordered Date Performed Result Body Sit e UPPER GI ENDOSCOPY 06/23/2025 N/A COLONOSCOPY 07/07/2025 N/A Encounters Encounter Location Date Provider Diagnosis [facility] Outpatient [address] [place] [id number] 07/06/2025 lFaco Bustos [facility] [address] [place] [phone] 06/23/2025 Flaco Bustos Iron deficiency anemia D50.9 ; GERD (gastroesophageal reflux disease) K21.9 and Upper abdominal pain, unspecified R10.10 [facility] [address] [place] [phone] 07/02/2025 Flaco Bustos [facility] [address] [place] [phone] 07/07/2025 Flaco Bustos [facility] [address] [place] [phone] 07/07/2025 Flaco Bustos Iron deficiency anemia D50.9 Assessments Encounter Date Diagnosis (ICD Code) Assessment Notes Treatment Notes Treatment Clinical Notes Section Notes 06/23/2025 Iron deficiency anemia (ICD-10 - D50.9) Overall, Rhonda appears well at the present time from a clinical standpoint. She does not show any signs of active GI bleeding at this time and has thus far seemed to have a good clinical response to her transfusions with subsequent IV iron infusions. We did review that her anemia is most likely in relation to some type of GI blood loss given the microcytic anemia with iron deficiency. Her ongoing upper GI complaints could certainly account for chronic GI blood loss if we are dealing with something such as esophagitis, gastritis, and/or peptic ulcer disease. Her history of the previous submucosal gastric lesion seen in 2020 could certainly be relevant if this has gotten larger and become ulcerated as could be seen with some type of leiomyoma or stromal tumor. As such, I recommended that she undergo upper endoscopy in the near future. I advised her that I do not think a colonoscopy is presently required given the clinical history of her current persistent upper GI complaints, her daily use of low-dose aspirin, the previous abnormal upper endoscopy in 2020, and the report of multiple colonoscopies in the past that had not been particularly revealing other than some routine polyps. Full consent has been obtained from her for the upper endoscopy, including risks of bleeding and perforation. The procedure will be done with monitored anesthesia care. I shall check a CBC today to be sure things have remained stable and hopefully have continued to improve. I shall wait until after she has seen Dr. Guevara next week to be sure to obtain cardiology clearance for the procedure. We did review that if the upper endoscopy is nonrevealing, including duodenal biopsies to rule out celiac disease, that I would recommend an eventual colonoscopy thereafter. Rhonda and Yolie Han were comfortable with this plan. Thank you again for allowing me to participate in Rhonda's care. I shall continue to keep you advised of her progress. 06/23/2025 GERD (gastroesophage al reflux disease) (ICD-10 - K21.9) Overall, Rhonda appears well at the present time from a clinical standpoint. She does not show any signs of active GI bleeding at this time and has thus far seemed to have a good clinical response to her transfusions with subsequent IV iron infusions. We did review that her anemia is most likely in relation to some type of GI blood loss given the microcytic anemia with iron deficiency. Her ongoing upper GI complaints could certainly account for chronic GI blood loss if we are dealing with something such as esophagitis, gastritis, and/or peptic ulcer disease. Her history of the previous submucosal gastric lesion seen in 2020 could certainly be relevant if this has gotten larger and become ulcerated as could be seen with some type of leiomyoma or stromal tumor. As such, I recommended that she undergo upper endoscopy in the near future. I advised her that I do not think a colonoscopy is presently required given the clinical history of her current persistent upper GI complaints, her daily use of low-dose aspirin, the previous abnormal upper endoscopy in 2020, and the report of multiple colonoscopies in the past that had not been particularly revealing other than some routine polyps. Full consent has been obtained from her for the upper endoscopy, including risks of bleeding and perforation. The procedure will be done with monitored anesthesia care. I shall check a CBC today to be sure things have remained stable and hopefully have continued to improve. I shall wait until after she has seen Dr. Guevara next week to be sure to obtain cardiology clearance for the procedure. We did review that if the upper endoscopy is nonrevealing, including duodenal biopsies to rule out celiac disease, that I would recommend an eventual colonoscopy thereafter. Rhonda and Yolie Han were comfortable with this plan. Thank you again for allowing me to participate in Rhonda's care. I shall continue to keep you advised of her progress. 07/07/2025 Iron deficiency anemia (ICD-10 - D50.9) 06/23/2025 Upper abdominal pain, unspecified (ICD-10 - R10.10) Overall, Rhonda appears well at the present time from a clinical standpoint. She does not show any signs of active GI bleeding at this time and has thus far seemed to have a good clinical response to her transfusions with subsequent IV iron infusions. We did review that her anemia is most likely in relation to some type of GI blood loss given the microcytic anemia with iron deficiency. Her ongoing upper GI complaints could certainly account for chronic GI blood loss if we are dealing with something such as esophagitis, gastritis, and/or peptic ulcer disease. Her history of the previous submucosal gastric lesion seen in 2020 could certainly be relevant if this has gotten larger and become ulcerated as could be seen with some type of leiomyoma or stromal tumor. As such, I recommended that she undergo upper endoscopy in the near future. I advised her that I do not think a colonoscopy is presently required given the clinical history of her current persistent upper GI complaints, her daily use of low-dose aspirin, the previous abnormal upper endoscopy in 2020, and the report of multiple colonoscopies in the past that had not been particularly revealing other than some routine polyps. Full consent has been obtained from her for the upper endoscopy, including risks of bleeding and perforation. The procedure will be done with monitored anesthesia care. I shall check a CBC today to be sure things have remained stable and hopefully have continued to improve. I shall wait until after she has seen Dr. Guevara next week to be sure to obtain cardiology clearance for the procedure. We did review that if the upper endoscopy is nonrevealing, including duodenal biopsies to rule out celiac disease, that I would recommend an eventual colonoscopy thereafter. Rhonda and Yolie Han were comfortable with this plan. Thank you again for allowing me to participate in Rhonda's care. I shall continue to keep you advised of her progress. Plan Of Treatment Pending Test Test Name Order Date UPPER GI ENDOSCOPY 06/23/2025 COLONOSCOPY 07/07/2025 LIVER PROFILE 06/23/2025 CBC w DIFF 06/23/2025 Complete Blood Count Auto Diff Pathology 07/06/2025 Next Appt Details Provider Name:Flaco Bustos , 08/19/2025 02:10:00 PM, [address] [place] [address] , [place], [place], [phone], Insurance Providers Payer Name Payer Address Payer Phone Subscriber Number Group Number Insured Name Patient Relationship to Insured Coverage Start Date Coverage End Date MEDICARE OF [place] [address] [place] [address] [id number] SHIRA RHONDA Self - patient is the insured 8 [employer] ATTN CLAIMS [address] [place] [address] [id number] SHIRACATRACHOA Self - patient is the insured 8 Medical (General) History Medical History History ICD Code Breast cancer with bilateral mastectomy as below Denies UT,DM,CVA,Lung disease,renal dise ase Iron deficiency anemia found in the summer 2024 requiring 2 units of blood and IV iron infusions. She is being followed at the [facility] H[facility]ology [facility] SVT-Metoprolol as needed--sees Dr. Guevara Multiple colonoscopies with Dr. Londono-last one age 73---she reports a history of some polyps Upper endoscopy and endoscop ic ultrasound in [address] Harris Graf and Dr. Den Carrington, respectively, for the evaluation of a prepyloric gastric antral submucosal lesion. Evaluation by endoscopic ultrasound including the biopsies was negative for neoplasm. She has not had an upper endoscopy since that time. Surgical History Surgery Date(Month/Year) Bilateral mastectomy 2004 C-sections
--- NOTE | 2025-08-17 09:58 | HO.ANESPROP2 ---
Documented by User: Eryn Collier NP 08/17/25 10:01 HPI - Anesthesia Eval Consult details Narrative: 80yo F for Colonoscopy s/p EGD 07/06/25 with MAC Prior to EGD: Saw [facility] cardiology, Dr. Guevara 06/29/25 for cardiac clearance: Preoperative cardiovascular risk stratification for upper endoscopy. She is currently optimized to undergo this procedure with low to intermediate risk for perioperative cardiovascular morbidity mortality. CAD noted by coronary CTA done at [facility] 06/25/25: Pt met with Dr. Guevara to review on 06/29/25, he notes possible significant stenosis in the mid LAD although she has no symptoms of angina in his symptoms exertional shortness of breath have improved with treatment of anemia. Will continue medical management at this point time given that she might have GI blood loss and interventional therapy would be risky for her. She is currently not having any exertional symptoms . Paroxysmal SVT for years: cannot tolerate regular use of metoprolol (uses prn), she is aware of vagal maneuvers; cardiology discussed possible ablation if persisting PMFSH Active Problems Active Problems: All Active Problems CAD (coronary artery disease) (Acute) Iron deficiency (Acute) B12 deficiency (Acute) Anemia (Acute) Abnormal stress test (Acute) Lightheadedness (Acute) Short of breath on exertion (Acute) Paroxysmal SVT (supraventricular tachycardia) (Acute) Past Medical History Medical History History of high cholesterol Hx of thyroid disease SVT (supraventricular tachycardia) Hx of transfusion of packed red blood cells Breast cancer Surgical History Surgical History Hx of section H/O colonoscopy History of esophagogastroduodenoscopy (EGD) Hx of bilateral mastectomy (~2004) History of Problems with Anesthesia: No Social History Social History Household Members: Spouse Housing: House Are you a primary physician locums urgent care to a significant other at home: No Do you presently have visiting nurse or other home services: No Patient Tobacco Use Status: Never used Tobacco Use of substances other than those prescribed or required for medical reasons: No Advance Directives: No Advance Directives Information Provided: Yes service: No Current occupational status: retired Meds Allergies Allergy/AdvReac Type Severity Reaction Status Date / Time No Known Allergies Allergy Verified 07/13/25 09:22 Home Medications ?Medication ?Instructions ?Recorded ?Confirmed ?Last Taken ?Type garlic 1,000 mg capsule 1,000 mg PO DAILY 04/30/25 08/17/25 Unknown History levothyroxine 75 mcg tablet 75 mcg PO DAILY 04/30/25 08/17/25 Unknown History multivitamin 1 tab PO DAILY 04/30/25 08/17/25 Unknown History pravastatin 80 mg tablet 80 mg PO BEDTIME 04/30/25 08/17/25 Unknown History aspirin 81 mg tablet,delayed 81 mg PO DAILY 07/03/25 08/17/25 06/29/25 History release calcium 500 mg (as 1 tab PO DAILY 07/03/25 08/17/25 Unknown History carbonate)-vitamin D3 3.125 mcg (125 unit) tablet coQ10 (ubiquinol) 200 mg capsule 200 mg PO DAILY 07/03/25 08/17/25 Unknown History uqacdjdzyob-yfl-bhayrurpe-hrb 1 tab PO DAILY 07/03/25 08/17/25 Unknown History 149-hyalur 500 mg-500 mg-66.7 mg tablet (Bhwfwymkmku-Pyoeqcqqtoc-ZWZ (with antiox)) ipratropium bromide 21 mcg (0.03 2 spray intranasal BID 07/03/25 08/17/25 Unknown History %) nasal spray krill 350 mg-omega-3 90 mg-dha 24 1 cap PO DAILY 07/03/25 08/17/25 06/29/25 History mg-epa 50 la-ieipxqb-xatpi capsule magnesium oxide 400 mg PO DAILY 07/03/25 08/17/25 Unknown History turmeric root extract 500 mg 500 mg PO DAILY 07/03/25 08/17/25 06/29/25 History capsule vit 40 tab PO DAILY 07/03/25 08/17/25 Unknown History T-czapttb-dcqmparmf-rutin-yykn566 500 mg-50 mg-25 mg-40 mg tablet (Bioflex) vitamins A,C,Q-yvcb-gohrdr 2,148 2 tab PO BID 07/03/25 08/17/25 Unknown History mcg-113 mg-45 mg-17.4 mg tablet (PreserVision AREDS) Exam Narrative Narrative: Stress Test 05/2025 Exercise stress test with exercise 5 mins of Magdy Protocol held at [facility], achieving 93% MPHR, with reports of feeeling very fatigued, lightheded and SOB, with isolated PACs and PVCs, with normotensive response to exercise. With ST depression inferiorly and in leads V4- V6 and ST elevation in aVR, meetingcriteria for ischemia. In recovery, pt's symsptoms improving and feeeling back to baseline. ST sgement improved to baseline. Test reviewed with Dr. Guevara. Will arrange for cardiac cath. ECHO 02/2025 Conclusions: - 1. Normal LV ejection fraction 55-60% with grade 2 diastolic dysfunction 2. Moderately dilated left atrium 3. Mild aortic and mitral regurgitation 4. Mildly elevated right ventricular systolic pressure with mildly elevated right atrial pressures 5. No gross pericardial effusion CT FFR Coronary Analysis FINDINGS: LAD: Normal FFR-CT throughout the LAD. LCx:Normal FFR-CT throughout the LCx. RCA:Normal FFR-CT throughout the proximal to mid RCA. IMPRESSION: FFR-CT evaluation suggests that the stenoses observed on coronary CTA are not hemodynamically significant. Assessment and Plan Assessment Anesthesia Assessment: Chart Reviewed Final Anesthetic Review History of Problems with Anesthesia: No Documented by User: Jovany Giordano MD 08/19/25 14:00 [facility] Past Medical History Medical History History of high cholesterol Hx of thyroid disease SVT (supraventricular tachycardia) Hx of transfusion of packed red blood cells Breast cancer Functional capacity: independent ambulation Family History Family history of problems with anesthesia: No Surgical History Surgical History Hx of section H/O colonoscopy History of esophagogastroduodenoscopy (EGD) Hx of bilateral mastectomy (~2004) Social History Social History Household Members: Spouse Housing: House Are you a primary physician locums urgent care to a significant other at home: No Do you presently have visiting nurse or other home services: No Patient Tobacco Use Status: Never used Tobacco Use of substances other than those prescribed or required for medical reasons: No Advance Directives: No Advance Directives Information Provided: Yes service: No Current occupational status: retired Meds Allergies Allergy/AdvReac Type Severity Reaction Status Date / Time No Known Allergies Allergy Verified 07/13/25 09:22 Home Medications ?Medication ?Instructions ?Recorded ?Confirmed ?Last Taken ?Type garlic 1,000 mg capsule 1,000 mg PO DAILY 04/30/25 08/17/25 Unknown History levothyroxine 75 mcg tablet 75 mcg PO DAILY 04/30/25 08/17/25 Unknown History multivitamin 1 tab PO DAILY 04/30/25 08/17/25 Unknown History pravastatin 80 mg tablet 80 mg PO BEDTIME 04/30/25 08/17/25 Unknown History aspirin 81 mg tablet,delayed 81 mg PO DAILY 07/03/25 08/17/25 06/29/25 History release calcium 500 mg (as 1 tab PO DAILY 07/03/25 08/17/25 Unknown History carbonate)-vitamin D3 3.125 mcg (125 unit) tablet coQ10 (ubiquinol) 200 mg capsule 200 mg PO DAILY 07/03/25 08/17/25 Unknown History aruwnzvohxm-aft-mcmbfrqcx-hrb 1 tab PO DAILY 07/03/25 08/17/25 Unknown History 149-hyalur 500 mg-500 mg-66.7 mg tablet (Tcoruyeczfo-Bzyvsmvqjux-DGK (with antiox)) ipratropium bromide 21 mcg (0.03 2 spray intranasal BID 07/03/25 08/17/25 Unknown History %) nasal spray krill 350 mg-omega-3 90 mg-dha 24 1 cap PO DAILY 07/03/25 08/17/25 06/29/25 History mg-epa 50 fd-nyuxeck-iprxf capsule magnesium oxide 400 mg PO DAILY 07/03/25 08/17/25 Unknown History turmeric root extract 500 mg 500 mg PO DAILY 07/03/25 08/17/25 06/29/25 History capsule vit 40 tab PO DAILY 07/03/25 08/17/25 Unknown History Y-pbaupbo-mcgopgipr-rutin-utco933 500 mg-50 mg-25 mg-40 mg tablet (Bioflex) vitamins A,C,N-hsmi-opswpc 2,148 2 tab PO BID 07/03/25 08/17/25 Unknown History mcg-113 mg-45 mg-17.4 mg tablet (PreserVision AREDS) Exam Exam Date and Time: 08/19/2025 Airway Mallampati Class: II TM Dist: >3cm Neck ROM: Full Heart: normal Lungs: normal Other: normal Assessment and Plan Assessment Anesthesia Assessment: Anesthesia Plan Discussed and Smoking Cess. Discussed Final Anesthetic Review Family History of Problems with Anesthesia: No NPO: Yes ASA Class: II Final Preanesthetic Review: No Changes in Pt Med Stat, Meds/Allgs Chart Reviewed, Consent Obtained/Reviewed and Anes Risks/Benef Reviewed Patient Risk: Low Procedure Risk: Low Anesthetic Plan Anesthetic Plan: MAC: Disposition: Standard PACU
[2025-08-17 13:45] VITALS: BMI 23.9
[2025-08-19 12:37] VITALS: BMI 22.4
[2025-08-19] MEDS: Lactated Ringers 1,000 ML 100 ML IVCONT (12:49)
[2025-08-19 12:50] VITALS: BP 111/68; PULSE 83; RESP 16; TEMP 36.2; O2SAT 98
[2025-08-19 15:53] VITALS: BP 115/64; PULSE 69; RESP 16; TEMP 36.3; O2SAT 100
--- NOTE | 2025-08-19 15:59 | PM.OP ---
Brief Operative Note Date of Service: 08/19/25 Pre-op diagnosis: Iron deficiency anemia Post-op diagnosis: other (Diverticulosis) Procedure: Colonoscopy to the cecum and TI Surgeon: Flaco Bustos MD Anesthesia: MAC Was an Director Of Medical Review used for this Procedure?: No Estimated blood loss (mL): 0 Pathology: none sent Condition: stable Disposition: PACU
[2025-08-19 16:08] VITALS: BP 118/64; PULSE 68; RESP 14; TEMP 36.5; O2SAT 100
--- NOTE | 2025-08-20 02:02 | OP_ITS ---
DATE OF SERVICE: 08/19/2025 SURGEON: Flaco Bustos MD INDICATIONS: The patient presents for evaluation of iron deficiency anemia. Full consent has been obtained from her for this, including risks of bleeding and perforation. PREOPERATIVE DIAGNOSIS: Iron deficiency anemia. POSTOPERATIVE DIAGNOSIS: PROCEDURE PERFORMED: Colonoscopy to the cecum and terminal ileum. ESTIMATED BLOOD LOSS: COMPLICATIONS: ANESTHESIA: Medication used, monitored anesthesia care. ASSISTANTS: SPECIMENS: POSTOPERATIVE DIAGNOSES: Iron deficiency anemia, diverticulosis, and internal hemorrhoids. DESCRIPTION OF PROCEDURE: The patient was placed in the left lateral decubitus position. The digital rectal exam revealed no abnormalities. The Olympus video pediatric colonoscope was entered into the rectum and advanced to the cecum. Once in the cecum, I did identify normal-appearing cecal pouch with appendiceal orifice and a normal-appearing ileocecal valve. The terminal ileum was cannulated and appeared normal. The scope was withdrawn back in the colon. The entire cecum and ileocecal valve appeared normal. The scope was slowly withdrawn assessing all mucosal surfaces carefully. Preparation was excellent. I did not visualize any sign of polyps, colitis, nor angiodysplasia. There was a mild amount of sigmoid diverticulosis. In the rectum, scope was retroflexed visualizing internal hemorrhoids, but no other pathology. The rectal mucosa appeared normal. The scope was straightened and withdrawn from the patient. She tolerated the procedure well and was returned to the recovery area in stable condition. IMPRESSION: 1. Diverticulosis. 2. Internal hemorrhoids. PLAN: Today's findings in the colon would not account for her anemia. Her recent upper endoscopy did not show any sign of celiac disease. There was some mild gastritis, although biopsies were negative for H pylori. She has been advised to continue her daily omeprazole and iron, as well as to remain off all aspirin and NSAIDs. We shall follow the blood count and depending upon her clinical course, we may need to consider further workup with a small bowel video capsule study. She will be seen in followup. This has been discussed with her daughter. MD RAVEN Hdz/JUANA / [id number]
== END 2025-08-19 16:16 | disposition home or self-care (01) ==
PROVIDERS: PCP Internal Medicine; Visit Provider Internal Medicine
PROC: 0DJD8ZZ Inspection of Lower Intestinal Tract, Via Natural or Artificial Opening Endoscopic (ICD-10-PCS; CPT 45378; principal; 2025-08-19 13:30)
DX: D50.9 Iron deficiency anemia, unspecified (principal); K21.9 Gastro-esophageal reflux disease without esophagitis; R10.9 Unspecified abdominal pain; K64.8 Other hemorrhoids; K57.30 Diverticulosis of large intestine without perforation or abscess without bleeding
CPT/HCPCS: 45378; J2003; J2371; J2704; J3010